=== PATIENT | female | born 1985 | race Caucasian/White ===

== ENCOUNTER → 2018-01-20 08:29 | Outpatient (CLI) | payer OTHER, SELFPAY ==
--- NOTE | 2018-01-20 | DI.US.S_ITS ---
PROCEDURE: US PELVIC COMPLETE INDICATIONS: PELVIC PAIN TECHNIQUE: Real-time scanning was performed of the pelvic organs, with image documentation. Additional endovaginal scanning was necessary due to incomplete visualization of the adnexal and endometrial structures by transabdominal scanning. COMPARISON: None. FINDINGS: Transabdominal scanning: Limited scanning through the kidneys shows no hydronephrosis. No pathologic free abdominal or pelvic fluid. Endovaginal scanning: Uterus: Uterus is normal in size at 3.6 x 5.5 x 8.4 cm, anteverted. The endometrium measures 2.0 mm in combined thickness, with centrally positioned IUD. Ovaries: Normal bilaterally measuring up to 2.0 cm on the right and 2.1 cm on the left. IMPRESSION: Centrally positioned IUD, normal-appearing myometrium and endometrium, normal-appearing ovaries bilaterally. Dictated by: Trevin Mobley M.D. on 01/20/2018 at 11:56 Approved by: Trevin Mobley M.D. on 01/20/2018 at 11:57
== END ==
PROVIDERS: PCP Family Medicine; Visit Provider Obstetrics & Gynecology
DX: R10.2 Pelvic and perineal pain (principal); Z97.5 Presence of (intrauterine) contraceptive device
CPT/HCPCS: 76830; 76856

== ENCOUNTER → 2018-12-10 13:13 | Outpatient (CLI) | payer OTHER, SELFPAY | PROVIDERS: PCP Family Medicine; Visit Provider Specialist | DX: R30.0 Dysuria (principal) | CPT/HCPCS: 87086 ==

== ENCOUNTER 2019-10-30 16:36 | Emergency (ER) | payer OTHER, SELFPAY ==
--- NOTE | 2019-10-30 17:07 | DI.RAD.S_ITS ---
PROCEDURE: XR FOOT LT MIN 3V INDICATIONS: left foot injury TECHNIQUE: 3 views of the foot were acquired. COMPARISON: None. FINDINGS: Bones: No fractures or dislocations. No suspicious bony lesions. Soft tissues: No tibiotalar joint effusion. Achilles tendon appears normal. IMPRESSION: 1. No fracture or dislocation. Dictated by: Jose Pulliam M.D. on 10/30/2019 at 16:32 Approved by: Jose Pulliam M.D. on 10/30/2019 at 16:33
[2019-10-30 17:09] VITALS: BP 113/68; PULSE 81; RESP 16; TEMP 37.1; O2SAT 99; BMI 23.9
--- NOTE | 2019-10-30 17:40 | ED_ITS ---
HPI - Extremity Injury (Lower) General Chief Complaint: Extremity Injury, Lower Stated Complaint: injured left foot on a water slide Time Seen by Provider: 10/30/19 17:40 Source: patient Mode of arrival: Family Vehicle Limitations: no limitations History of Present Illness HPI Narrative: 34-year-old female here for evaluation of left foot pain. She states she hurt it on a water slide yesterday when she was on vacation. She just arrived back home with pain in her left foot. Has not done anything for the symptoms prior to arrival. Related Data Home Medications Medication Instructions Recorded Confirmed levonorgestrel [Mirena] 52 mg INTRAU #0 02/25/17 Previous Rx's Medication Instructions Recorded nitrofurantoin monohyd/m-cryst 100 mg PO BID #10 cap 10/23/17 [Macrobid] sulfamethoxazole 800 1 tab PO BID #10 tab 12/10/18 mg-trimethoprim 160 mg tablet Allergies Allergy/AdvReac Type Severity Reaction Status Date / Time latex Allergy Mild LOCAL RASH Verified 10/30/19 17:15 Review of Systems Musculoskeletal Comments: Left foot pain Integumentary/Breasts Skin/Breast: Denies lesions and Denies rash Neurologic Neurologic: Denies paresthesias Hematologic/Lymphatic Hematologic/Lymphatic: Denies easy bleeding and Denies easy bruising Patient History Medical History Healthy adult (Acute) Social History Smoking Status: Former smoker Smoking Status: Former smoker alcohol intake frequency: a few times a week Alcohol type: hard liquor Substance Use Type: does not use Exam Initial Vital Signs Initial Vital Signs: Vital Signs Temperature 98.7 F 10/30/19 17:09 Pulse Rate 81 10/30/19 17:09 Respiratory Rate 16 10/30/19 17:09 Blood Pressure 113/68 10/30/19 17:09 Pulse Oximetry 99 10/30/19 17:09 Resp Effort & Inspection: normal respiratory effort Auscultation: clear to auscultation bilaterally Cardio Rate: regular rate Rhythm: regular rhythm Pulses: dorsalis pedis present on the left Skin Lesions: no lesions Rashes: no rashes Neuro General: alert and awake Cognition: normal cognition Speech: speech normal Extrem General: normal to inspection and capillary refill normal Psych Appearance: grossly normal and well kempt Procedures Orthopedic Splinting/Casting Injury #1: Side: left Lower Extremity Injury Location: foot Lower Extremity Immobilizer: post-op shoe Post splinting neuro exam: intact Post splinting vascular exam: intact Placed by: Nursing Course Orders Ordered: ED Orders 10/30/19 17:07 XR foot LT min 3V Stat Vital Signs Vital signs: Vital Signs - 8 hr 10/30/19 17:09 Temperature 98.7 F Pulse Rate 81 Respiratory Rate 16 Blood Pressure 113/68 Pulse Oximetry 99 MDM - Extremity Injury (Lower) Imaging Data Extremity x-ray #1: Radiologist's Impression: [address] [address] XRay Report Signed Patient: Jerica Kelley JMR#: [id number] : 1985Acct:[id number] Age/Sex: 34 / FDate of Service: 10/30/19 Loc: ED Accession Number: [id number] Procedure: XR foot LT min 3V Ordering Provider: Jian Patricia D.O. PROCEDURE: XR FOOT LT MIN 3V INDICATIONS: left foot injury TECHNIQUE: 3 views of the foot were acquired. COMPARISON: None. FINDINGS: Bones: No fractures or dislocations. No suspicious bony lesions. Soft tissues: No tibiotalar joint effusion. Achilles tendon appears normal. IMPRESSION: 1. No fracture or dislocation. Dictated by: Jose Pulliam M.D. on 10/30/2019 at 16:32 Approved by: Jose Pulliam M.D. on 10/30/2019 at 16:33 [facility] Narrative Medical decision making narrative: Patient is neurovascularly intact. No fractures on the x-rays, physical exam is not consistent with the Lis franc injury. She was given a ortho shoe for comfort. We did discuss elevation and ice. Discussed return precautions and follow-up instructions. She expressed understanding and agreement. Discharge Plan Departure Patient Disposition: Home Clinical Impression: Injury of foot, left Qualifiers: Encounter type: initial encounter Qualified Code(s): S99.922A - Unspecified injury of left foot, initial encounter Instructions: How To Perform RICE (Rest, Ice, Compress, Elevate), DI for Foot Pain Activity Restrictions/Additional Instructions: I do recommend you keep your foot is elevated as much as possible. You can also ice your foot. You can walk as tolerated. Use the shoe as needed. Return to the emergency department for any new or worsening symptoms Prescriptions: No Action levonorgestrel [Mirena] 1 EACH intrauterine device 52 mg INTRAU Qty: 0 RF: 0 nitrofurantoin monohyd/m-cryst [Macrobid] 100 MG capsule 100 mg PO BID Qty: 10 RF: 0 sulfamethoxazole-trimethoprim [Bactrim DS] 800-160 mg tablet 1 tab PO BID Qty: 10 RF: 0 Referrals: Jorge Andrade MD [Primary Care Provider] -
== END 2019-10-30 18:02 | disposition home or self-care (01) ==
PROVIDERS: Emergency Provider Emergency Medicine; PCP Family Medicine
DX: S99.922A Unspecified injury of left foot, initial encounter (principal); Y93.19 Activity, other involving water and watercraft
CPT/HCPCS: 73630; 99283

== ENCOUNTER → 2020-03-13 12:35 | Outpatient (CLI) | payer OTHER, SELFPAY | PROVIDERS: PCP Family Medicine; Visit Provider Obstetrics & Gynecology | DX: R30.0 Dysuria (principal) | CPT/HCPCS: 87077; 87086; 87186 ==

== ENCOUNTER → 2020-04-30 15:25 | Outpatient (CLI) | payer OTHER, SELFPAY ==
[2020-05-01 10:08] LABS: COVID19 Sendout Not Detected (Not Detect)
== END ==
PROVIDERS: PCP Family Medicine; Visit Provider Physician Assistant
DX: Z11.59 Encounter for screening for other viral diseases (principal)
CPT/HCPCS: 87635

== ENCOUNTER 2020-05-03 07:48 | Day surgery (SDC) | payer OTHER, SELFPAY ==
[2020-05-01 08:00] VITALS: BMI 23.1
[2020-05-03] VITALS (17 sets, daily range): BP systolic 90–141; BP diastolic 41–79; PULSE 62–90; RESP 10–19; TEMP 36.5–37.3; O2SAT 97–100; BMI 23.4
[2020-05-03] MEDS: LACTATED RINGERS 1,000 ML 42 ML IV (08:25)
[2020-05-03] MEDS: ACETAMINOPHEN 325 MG TABLET 975 MG PO (08:49)
[2020-05-03] MEDS: SCOPOLAMINE 1 PATCH TOP (08:49)
--- NOTE | 2020-05-03 08:50 | PM.PREOP ---
Pre-operative Note COVID-19 COVID-19 status: Negative Result date/Date tested (Pos, Neg/Pending): 04/30/20 Interval Note History & Physical reviewed/Exam performed by Physician: Yes Changes to H&P: No H&P completed within 30 days and has changed as indicated here:: 04/25/20
[2020-05-03] MEDS: CEFAZOLIN 2 GM/100 ML FROZ.PIGGY IV (08:51)
--- NOTE | 2020-05-03 09:18 | SUR.OPER ---
Lithotomy on padded OR bed, head on pillow, arms secured on padded arm boards at <90 degrees abduction. Legs secured in padded yellow fins stirrups.
[2020-05-03] MEDS: BUPIVACAINE 0.25% W/ EPI 30 ML VIAL INJ (09:26)
[2020-05-03] MEDS: ONDANSETRON 4 MG/2 ML INJ IV (10:51)
[2020-05-03] MEDS: fentaNYL 100 MCG/2 ML INJ IV ×2 (10:51→11:44)
[2020-05-03] MEDS: OXYCODONE IR 5 MG TABLET PO ×2 (10:52→11:26)
--- NOTE | 2020-05-03 11:04 | PM.GYNOP.1 ---
Operative Date/Time/Diagnoses Date of procedure: 05/03/20 Time of procedure: 11:04 Pre-op diagnosis: Symptomatic cystocele and rectocele Labial hypertrophy causing dyspareunia Post-op diagnosis: same Procedure & Clinicians Procedure: Procedures Operation Date: 05/03/20 09:00 Actual Procedures Side Surgeon p Anterior/Posterior Repair/ Labiaplasty Nati Roche MD Indications: Symptomatic cystocele and rectocele Labial hypertrophy causing dyspareunia Surgeon: Nati Roche Pesticide Control Inspector: Re Palafox Anesthesia Type: General and Local Operative Notes Findings: Second to third-degree cystocele Second to third-degree rectocele Labia minora with 3 extra cm of length bilaterally Closure Type: primary Specimen(s): none Applied: catheter (Latex-free, to continuous drainage) Estimated blood loss (mL): 50 Blood products transfused: none Procedure in detail: The patient was taken to the operating room where she was placed in the dorsal supine position. After adequate general endotracheal anesthesia was achieved, she was placed in the dorsal lithotomy position, and prepped and draped in the usual sterile fashion. A time-out was performed. Two Allis clamps were placed at the apex of the cystocele. 6 mL of 0.25% Marcaine with epinephrine were injected and an incision was made with a #10 blade between the 2 Allis clamps. Wide Allis clamps were placed on the midline of the cystocele approximately 4. 8 cc of 0.25% Marcaine with epinephrine were injected lateral to the midline submucosally on both sides. The mucosa was undermined using the Metzenbaum scissors and the mucosa incised in the midline moving the wide Allis clamps to the edges of the mucosa. The mucosa was dissected off the underlying fascia using an open moistened Ray-Mc and a #10 blade. The fascia was reapproximated with 0 Vicryl with a series of horizontal mattress sutures. The excess vaginal mucosa was excised. The mucosa was closed using simple interrupted sutures with 2-0 Vicryl including the underlying fascia to close the space. The weighted speculum was removed from the vagina. Allis clamps were placed at the mucocutaneous junction at the introitus. 6 mL of 0.25% Marcaine with epinephrine were injected. An incision was made with a #10 blade between the 2 Allis clamps, and a triangular piece of skin and underlying subcutaneous tissue was removed. Allis clamps were placed in the midline of the rectocele. 10 mL of 0.25% Marcaine with epinephrine were injected submucosally. The mucosa was undermined using the Metzenbaum scissors and the mucosa incised in the midline, moving the wide Allis clamps to the mucosal edges. The underlying fascia was dissected off of th mucosa using an open moistened Ray-Mc and a #10 blade. The fascia was reapproximated using 0 Vicryl with a series of horizontal mattress sutures. The excess vaginal mucosa was excised. The mucosa was closed using a series of simple interrupted sutures with 2-0 Vicryl including the underlying fascia to close the space. On the perineum 0 Vicryl was used to reapproximate the levator muscle. The subcutaneous layer was closed with 2-0 Vicryl. The skin was closed with 3-0 chromic in a subcuticular fashion. Hemostasis was achieved. The labia were grasped with Allis clamps, and pulled straight out. Using a sterile marker, approximately 3 cm of tissue was marked off to be removed on each side. 10 cc of 0.25% Marcaine with epinephrine were injected under the skin. Using the Metzenbaum scissors the excess labia minora were excised. The skin was closed with 4 0 chromic in simple interrupted sutures. Hemostasis was achieved. A Betadine moistened vaginal pack was placed into the vagina. A rectal exam was done and there were no sutures palpable in the rectum. 50 cc of urine was clear in the Cutler bag. Sponge, lap, and instrument counts were correct x-2. The patient tolerated the procedure well, was taken to PACU in stable condition. Complications: none Post-operative Condition: stable Disposition: PACU Plan for aftercare: To acute care after recovery
--- NOTE | 2020-05-03 12:01 | SUR.PHASEI ---
Medicated with po and IV pain medication for c/o 8 pain. Patient states pain level is now 4/10. Tolerating po. Drsg has scant amount of red drainage.
[2020-05-03] MEDS: LACTATED RINGERS 1,000 ML 100 ML IV ×2 (12:35→22:34)
--- NOTE | 2020-05-03 14:28 | PC.NURSE ---
Patient was received post-op from PACU, yoder in place draining clear yellow urine. Vaginal packing noted, with shellie pad in place with scant bloody drainage. Labia appears pink with mild edema, patient has ice pack in place. Patient resting comfortably at this time, laying on her right side. Call light within reach. COntinue to monitor.
[2020-05-03] MEDS: OXYCODONE/ACETAMINOPHEN 5/325 TABLET 1 TAB PO ×2 (15:40→20:15)
[2020-05-03] MEDS: KETOROLAC 30 MG/ML VIAL IV ×2 (16:25→22:23)
[2020-05-03] MEDS: DOCUSATE 250 MG CAPSULE PO ×2 (16:26→20:15)
[2020-05-03] MEDS: HYDROMORPHONE 0.5 MG INJ IV ×2 (18:11→22:33)
--- NOTE | 2020-05-03 22:43 | PC.NURSE ---
Assumed care of pt @ 1900. Pt positions self in bed and stands up @ bedside periodically. Reports vaginal bleeding approximately one tablespoon and manages own pad changes. Cutler to gravity. Pt reports stitches in place to labia. Medicated for c/o pain multiple sources as per emar; back and abdomen. Ice pack to perineum. Denies nausea. BL calf scd's in place when in bed.
[2020-05-04] MEDS: OXYCODONE/ACETAMINOPHEN 5/325 TABLET 1 TAB PO ×3 (00:22→09:40)
--- NOTE | 2020-05-04 01:35 | PC.NURSE ---
Addendum entered by Evelyne Ayala R.N. 05/04/20 06:09: Catheter removed at 0600. UOP total of 1575cc. Instructed in sx/prevention of UTI. Patient already stating she is going to need the IV Dilaudid at 0630; rates current pain severity as 3/10. Discussed need to manage pain on po pain medications in order to discharge home and to wait to discuss further with MD when she comes in to remove packing. Peripad changed; small amount vaginal bleeding noted. Addendum entered by Evelyne Ayala R.N. 05/04/20 04:39: Patient complains of 3/10 pain again this morning and insisted on taking Percocet in addition to scheduled Toradol. Addendum entered by Evelyne Ayala R.N. 05/04/20 02:39: States pain is increasing and now at 4/10; medicated with IV Dilaudid Original Note: Seen and assessed at 2325. Is alert and oriented. Breath sounds CTA with RA sat of 100%. HRR. Denies nausea. BT hypoactive; denies passing flatus as yet. Indwelling catheter is patent; urine is clear yellow. Having 2/10 throbbing/aching pain in vaginal wall and rectum; has ice packs to areas and is receiving scheduled Toradol and as needed Percocet. Was medicated with Percocet at 0022 at which time patient stood up at bedside and peripad changed; small amount vaginal bleeding on pad. Labia is slightly swollen but no redness. Is able to moved self in bed. Refusing SCD's so reminded to ankle wave; demonstrated understanding. Fall risk score is moderate.
[2020-05-04] MEDS: HYDROMORPHONE 0.5 MG INJ IV ×2 (02:33→07:38)
[2020-05-04] MEDS: KETOROLAC 30 MG/ML VIAL IV ×2 (04:34→09:40)
[2020-05-04 05:10] VITALS: BP 106/73; PULSE 63; RESP 18; TEMP 36.5; O2SAT 100
[2020-05-04 08:00] VITALS: BP 104/65; PULSE 53; RESP 18; TEMP 36.9; O2SAT 100
[2020-05-04] MEDS: DOCUSATE 250 MG CAPSULE PO (09:40)
--- NOTE | 2020-05-04 12:02 | PC.NURSE ---
Assess- Patient discharged to home. Patient given dilaudid 0.5mg around 0800, she also had toradol and 1 percocet around 0945 for complaints of discomfort to her rectum. into discharge patient and she just left via wheelchair and to drive her home. Patient had only a small amount of bleeding to her peripad and mild swelling to her labia.
--- NOTE | 2020-05-04 13:36 | P.DS_ITS ---
History of Present Illness History of Present Illness Date Patient Seen: 05/04/20 Time Patient Seen: 10:15 Chief complaint: A/P REPAIR W/LABIAPLASTY *OPB* Narrative: Patient is a 34-year-old 2 para 2 postop day # 1 status post anterior and posterior repair as well as bilateral labia plasty. Pain is well controlled. She has voided without the catheter. The vaginal packing was removed and was mostly dry. She has ambulated. Discharge Providers Provider Discharge Date: 05/04/20 Primary care physician: Jorge Andrade MD Discharge provider: Nati Roche MD Summary Hospital Course Discharge Diagnosis: Symptomatic cystocele and rectocele Labial hypertrophy Status post anterior/posterior repair Status post bilateral labia minora labia plasty Hospital Course: Patient was admitted on May 03, 2020 for scheduled anterior and posterior repair as well as labia plasty. She underwent these procedures without complication. On postop day # 1 her catheter was removed and she was able to void 500 cc of clear yellow urine with a 22 cc postvoid residual. She is tolerating a diet. Pain is well controlled. She is ambulating without assistance. She is discharged home. Status at Discharge Cognitive/behavioral status at discharge: oriented Functional status at discharge: independent ambulation Overall status at discharge: patient is progressing back to baseline Time Spent with Patient Time spent: Less than 30 minutes Exam Vital Signs (past 8 hours): - 05/04/20 08:00 Temperature 98.4 F Pulse Rate 53 L Respiratory Rate 18 Blood Pressure 104/65 Pulse Oximetry 100 Oxygen Delivery Method Room Air Oxygen Flow Rate 0 Narrative Exam Narrative: Generally: Patient is sitting up in bed, no acute distress Lungs: Clear to auscultation bilaterally Cardiovascular: Regular rate and rhythm Abdomen: Soft and flat. Good bowel sounds Perineum: Dry, stitches visible Vagina: Packing removed Extremities: Negative Homans Discharge Assessment & Plan Assessment and Plan Assessment: Postop day # 1 status post anterior and posterior repair as well as bilateral labia plasty Patient doing very well Plan of Treatment: Discharge to home Follow-up 2 weeks Prescription for Colace and Percocet sent to [place] [facility] No heavy lifting Patient to call with fever, chills, or bleeding vaginally more than spotting to light Discharge Plan Discharge Plan Patient Disposition: Home Discharge comment: Call with fever, chills or bleeding vaginally more than spotty to light Expect some bleeding Ibuprofen 600mg every 6 hours Stool softners twice a day Discharge Med Rec/Prescriptions Prescriptions: New oxycodone-acetaminophen [Percocet] 5-325 mg tablet 1 tab PO Q4-6H PRN (Reason: pain) Qty: 30 RF: 0 docusate sodium [Colace] 100 mg capsule 100 mg PO BID Qty: 20 RF: 0 Continued Mirena 1 EACH intrauterine device 52 mg INTRAU CONT Qty: 0 RF: 0 Follow up/Referrals: Nati Roche MD [Physician] - 2 Weeks Jorge Andrade MD [Primary Care Provider] - Discharge Orders: Discharge (Order); Ordered 05/04/20 Ordered By: Nati Roche Provider Discharge Instructions Activity: No heavy lifting, pushing or pulling No lunging Skin/Wound/Dressing Care Report to your healthcare provider any signs of infection, such as:: chills, fever, increased pain and unusual drainage Visit Report/Discharge Packet Instructions: DI for Cystocele and Rectocele Repair, DI for Labiaplasty, Oxycodone/Acetaminophen (By mouth) Stand Alone Forms: Surgery Discharge Discharge Data Primary Care Provider: Jorge Andrade Attending Provider: Nati Roche Discharges patient from system. Discharge Date/Time: 05/04/20 12:05
--- NOTE | 2020-05-04 14:18 | CM.DPNOTE ---
DC Note Patient is a 34 yo female, resident of [place]. Patient is POD#1 from [employer] procedure w/Dr Roche. PCP: Jorge Andrade Payer: Pal Le Reviewed chart. MARLENY Reyes explains patient doing well and ambulating in room. Patient eager to leave and will have supportive family to assist upon DC. No needs from this FIN[employer]CIAL [employer] identified at this time. PARMINDER
== END 2020-05-04 12:05 | disposition home or self-care (01) ==
LOC: OR 07:50 → AC 07:50
PROVIDERS: PCP Family Medicine; Referring Provider Family Medicine; Visit Provider Obstetrics & Gynecology
PROC: (CPT 57260; principal; 2020-05-03 09:00)
DX: N81.6 Rectocele (principal); N81.10 Cystocele, unspecified; N90.60 Unspecified hypertrophy of vulva
CPT/HCPCS: 57260; 15839; J0690; J1100; J1170; J1885; J2250; J2405; J2704; J3010

== ENCOUNTER → 2020-11-08 11:32 | Outpatient (CLI) | payer OTHER, SELFPAY ==
[2020-05-22 15:13] VITALS: BMI 23.4
[2020-11-08 11:55] LABS: Add Manual Diff / Slide Review NO; Basophils Absolute Auto 0 /uL (0-100); Basophils Percent Auto 0.1 % (0-2); Eosinophils Absolute Auto 200 /uL (0-450); Eosinophils Percent Auto 1.5 % (2-4); Hematocrit 36.4 % (36-46); Hemoglobin 12.5 g/dL (12.0-16.0); Lymphocytes Absolute Auto 1600 /uL (1100-4500); Lymphocytes Percent Auto 12.7 % (25-40); Mean Corpuscular HGB Conc 34.4 % (30-36); Mean Corpuscular Hemoglobin 32.5 PG (26-34); Mean Corpuscular Volume 94.4 fL (80-100); Monocytes Absolute Auto 700 /uL (0-900); Monocytes Percent Auto 5.5 % (3-14); Neutrophils Absolute Auto 10300 /uL (1500-7000); Neutrophils Percent Auto 80.2 % (50-75); Platelet Count 251 X10^3/uL (150-400); Red Blood Cell Count 3.86 X10^6/uL (4.0-5.2); Red Cell Distribution Width 12.2 % (11.6-14.8); White Blood Cell Count 12.8 X10^3/uL (4.5-11.0)
[2020-11-08 12:14] LABS: Alanine Aminotransferase 13 IU/L (<35); Albumin 4.5 g/dL (3.5-5.0); Albumin Globulin Ratio 1.7 (1.0-2.8); Alkaline Phosphatase 54 U/L (38-126); Aspartate Aminotransferase 18 IU/L (14-36); BUN Creatinine Ratio 16.4 (6-22); Bilirubin Total 0.4 mg/dL (0.2-1.3); Blood Urea Nitrogen 10 mg/dL (7-17); Calcium 9.5 mg/dL (8.4-10.2); Carbon Dioxide 27 mmol/L (22-32); Chloride 102 mmol/L (98-107); Estimated Glomerular Filt Rate > 60.0 mL/min (>60); Globulin 2.7 g/dL (1.7-4.1); Glucose 80 mg/dL (70-100); HEMOLYSIS < 15 (0-50); Potassium 3.7 mmol/L (3.4-5.1); Sodium 138 mmol/L (137-145); Total Protein 7.2 g/dL (6.3-8.2)
[2020-11-08 12:36] LABS: Appearance Urine UA CLOUDY; Bilirubin Urine UA NEGATIVE (NEGATIVE); Color Urine UA YELLOW; Glucose Urine UA NEGATIVE (Negative); Ketones Urine UA TRACE (NEGATIVE); Leukocyte Esterase Urine UA 2+ (NEGATIVE); Nitrite Urine UA POSITIVE (Negative); Occult Blood Urine UA 3+ (Negative); Protein Urine UA 1+ (Negative); Specific Gravity Urine UA 1.025 (1.000-1.035); Urobilinogen Urine UA 0.2 E.U./dL (0.2)
[2020-11-08 12:40] LABS: pH Urine UA 5.5 (4.5-8.0)
[2020-11-08 12:47] LABS: Amorphous Sediment Urine 1+; Bacteria Urine Many (>30); Culture Indicated Urine Specimen Cultured; Mucus Urine 1+ (Negative); RBC Urine 1-5/HPF (0-5/HPF); Squamous Epithelial Cell Urine 0-1 /HPF (0-5/HPF); WBC Urine >100/HPF (0-5/HPF)
[2020-11-08 13:37] LABS: TSH w/ Reflex to FT4 0.15 uIU/mL (0.47-4.68)
[2020-11-08 14:25] LABS: Free T4, Direct Thyroxine 0.99 ng/dL (0.78-2.19)
== END ==
PROVIDERS: PCP Family Medicine; Referring Provider Family Medicine; Visit Provider Obstetrics & Gynecology
DX: N39.0 Urinary tract infection, site not specified (principal); Z13.220 Encounter for screening for lipoid disorders
CPT/HCPCS: 36415; 80053; 81001; 84439; 84443; 85025; 87077; 87086; 87186

== ENCOUNTER → 2021-06-22 12:15 | Outpatient (CLI) | payer OTHER, SELFPAY ==
[2020-05-22 15:13] VITALS: BMI 23.4
[2021-06-22 12:51] LABS: Appearance Urine UA CLOUDY; Bilirubin Urine UA NEGATIVE (NEGATIVE); Color Urine UA YELLOW; Glucose Urine UA NEGATIVE (Negative); Ketones Urine UA TRACE (NEGATIVE); Leukocyte Esterase Urine UA 2+ (NEGATIVE); Nitrite Urine UA NEGATIVE (Negative); Occult Blood Urine UA 1+ (Negative); Protein Urine UA 1+ (Negative); Specific Gravity Urine UA 1.025 (1.000-1.035); Urobilinogen Urine UA 0.2 E.U./dL (0.2)
[2021-06-22 12:52] LABS: pH Urine UA 6.5 (4.5-8.0)
[2021-06-22 12:59] LABS: Amorphous Sediment Urine 1+; Bacteria Urine Moderate (10-30); Mucus Urine 2+ (Negative); RBC Urine 1-5/HPF (0-5/HPF); Squamous Epithelial Cell Urine 0-1 /HPF (0-5/HPF); WBC Urine 5-10/HPF (0-5/HPF)
[2021-06-22 13:00] LABS: Culture Indicated Urine Specimen Cultured
== END ==
PROVIDERS: PCP Family Medicine; Referring Provider Obstetrics & Gynecology; Visit Provider Obstetrics & Gynecology
DX: R30.0 Dysuria (principal)
CPT/HCPCS: 81001; 87086

== ENCOUNTER → 2021-12-31 14:52 | Outpatient (CLI) | payer OTHER, SELFPAY ==
[2020-05-22 15:13] VITALS: BMI 23.4
[2021-12-31 16:59] LABS: Appearance Urine UA CLEAR; Bilirubin Urine UA NEGATIVE (NEGATIVE); Color Urine UA YELLOW; Glucose Urine UA NEGATIVE (Negative); Ketones Urine UA NEGATIVE (NEGATIVE); Leukocyte Esterase Urine UA 2+ (NEGATIVE); Nitrite Urine UA NEGATIVE (Negative); Occult Blood Urine UA TRACE-INTACT (Negative); Protein Urine UA NEGATIVE (Negative); Specific Gravity Urine UA <=1.005 (1.000-1.035); Urobilinogen Urine UA 0.2 E.U./dL (0.2)
[2021-12-31 17:00] LABS: pH Urine UA 6.5 (4.5-8.0)
[2021-12-31 17:12] LABS: Bacteria Urine Moderate (10-30); Culture Indicated Urine Specimen Cultured; RBC Urine 1-5/HPF (0-5/HPF); Squamous Epithelial Cell Urine 0-1 /HPF (0-5/HPF); Transitional Epi Cells Urine 0-1/HPF (0-5/HPF); WBC Urine 10-30/HPF (0-5/HPF)
== END ==
PROVIDERS: PCP Family Medicine; Referring Provider Obstetrics & Gynecology; Visit Provider Obstetrics & Gynecology
DX: R30.0 Dysuria (principal)
CPT/HCPCS: 81003; 81015; 87086

== ENCOUNTER 2024-04-18 03:43 | Emergency (ER) | payer OTHER, SELFPAY ==
[2020-05-22 15:13] VITALS: BMI 23.4
[2024-04-18 03:53] VITALS: BP 118/83; PULSE 83; RESP 18; O2SAT 100
[2024-04-18 03:57] VITALS: BP 118/83; PULSE 91; RESP 18; TEMP 36.5; O2SAT 100; BMI 18.1
--- NOTE | 2024-04-18 04:11 | ED_ITS ---
HPI - Abdominal Pain General Chief Complaint: Abdominal Pain Stated Complaint: abd pain Time Seen by Provider: 04/18/24 03:57 Source: patient Mode of arrival: Ambulatory History of Present Illness HPI narrative: Patient is 38-year-old female who presents she was epigastric pain. She reports that it is quite tender has no nausea vomiting or fever. It progressively has gotten worse throughout the day. It is nonradiating. She reports that she is lost about 15 lb over the last month or so. She previously was having night sweats but no longer. She reports that many women in her family have ulcer she is afraid that she has 1 2. She says that her pain is definitely worsened with gluten and dairy so she avoids those things. She is good about eating getting enough protein. No significant right upper quadrant pain no right shoulder pain. She has had it off and on but no has progressively got worse. She gets relief sitting up leaning forward Related Data Home Medications Medication Instructions Recorded Confirmed levonorgestrel 21 mcg/24 hours (8 52 mg INTRAU CONT ##0 02/25/17 11/26/20 yrs) 52 mg intrauterine device (Mirena) Previous Rx's Medication Instructions Recorded escitalopram oxalate 10 mg tablet See Rx Instructions .Route 03/10/22 .COMPLEX #30 tabs omeprazole 20 mg capsule,delayed 20 mg PO BID #30 caps 04/18/24 release Allergies Allergy/AdvReac Type Severity Reaction Status Date / Time latex Allergy Mild LOCAL RASH Verified 11/26/20 08:03 Patient History Medical History (Updated 04/18/24 @ 06:20 by Jessica Goodson DO) Healthy adult Social History marital status: household members: spouse and children Smoking Status: Former smoker alcohol intake: current Smoking Status: Former smoker alcohol intake frequency: a few times a week Alcohol type: hard liquor Substance Use Type: does not use Exam Initial Vital Signs Initial Vital Signs: Vital Signs Pulse Rate 83 04/18/24 03:53 Respiratory Rate 18 04/18/24 03:53 Blood Pressure 118/83 04/18/24 03:53 Pulse Oximetry 100 04/18/24 03:53 GENERAL: Thin alert 38-year-old female appears uncomfortable HEENT: Head atraumatic,EOMI, pupils reactive, face symmetric, moist mucous membranes CARDIOVASCULAR: Regular rate and rhythm without murmurs, rubs or gallops. RESPIRATORY: Breath sounds equal bilaterally, no wheezes rales or rhonchi. ABDOMEN: Soft, epigastric pain negative Brown's sign no right upper quadrant pain no distention no lower abdominal pain : No CVA tenderness EXTREMITIES: Normal range of motion, no clubbing or edema. Neurovascularly intact NEUROLOGICAL: Alert and oriented x4.Normal gait and speech. SKIN: Warm, dry, no laceration, no petechiae, no rashes or lesions. Course Orders Ordered: Discontinued Medications Acetaminophen (Ofirmev) 1,000 mg in 100 mls @ 400 mls/hr IV NOW ONE Stop: 04/18/24 06:25 Last Infusion: 04/18/24 06:49 Dose: Infused Documented By: Admin: 04/18/24 06:19 Dose: 400 mls/hr Documented By: SADIE Ketorolac Tromethamine (Ketorolac 30 Mg/Ml Vial) 15 mg IV NOW ONE Stop: 04/18/24 04:17 Last Admin: 04/18/24 04:22 Dose: 15 mg Documented By: Ondansetron HCl (Ondansetron 4 Mg/2 Ml Inj) 4 mg IV NOW ONE Stop: 04/18/24 04:52 Last Admin: 04/18/24 04:59 Dose: Not Given Documented By: SADIE Pantoprazole Sodium (Pantoprazole 40 Mg Vial) 40 mg IV NOW ONE Stop: 04/18/24 06:12 Last Admin: 04/18/24 06:16 Dose: 40 mg Documented By: SADIE Vital Signs Vital signs: Vital Signs - 8 hr 04/18/24 03:53 04/18/24 03:53 04/18/24 03:57 Temperature 97.7 F Pulse Rate 83 91 H Respiratory Rate 18 18 Blood Pressure 118/83 118/83 Pulse Oximetry 100 100 Oxygen Delivery Method Room Air MDM - Abdominal Pain Lab Data 04/18/24 04:08 04/18/24 04:08 Labs: Lab Results 04/18/24 Range/Units 04:08 WBC 5.6 (4.5-11.0) X10^3/uL RBC 3.87 L (4.0-5.2) X10^6/uL Hgb 12.7 (12.0-16.0) g/dL Hct 35.8 L (36-46) % MCV 92.6 (80-100) fL MCH 32.8 (26-34) PG MCHC 35.4 (30-36) % RDW 13.1 (11.6-14.8) % Plt Count 268 (150-400) X10^3/uL Neut % (Auto) 44.2 L (50-75) % Lymph % (Auto) 43.1 H (25-40) % [place] % (Auto) 8.1 (3-14) % Eos % (Auto) 4.0 (2-4) % Baso % (Auto) 0.6 (0-2) % Neut # (Auto) 2500 (2726-8281) /uL Lymph # (Auto) 2400 (3102-5234) /uL [place] # (Auto) 500 (0-900) /uL Eos # (Auto) 200 (0-450) /uL Baso # (Auto) 0 (0-100) /uL Sodium 135 L (137-145) mmol/L Potassium 3.5 (3.4-5.1) mmol/L Chloride 106 (98-107) mmol/L Carbon Dioxide 22 (22-32) mmol/L BUN 13 (7-17) mg/dL Creatinine 0.58 (0.52-1.04) mg/dL Estimated GFR > 60 (>60) mL/min BUN/Creatinine Ratio 22.4 H (6-22) Glucose 93 (70-100) mg/dL Calcium 9.3 (8.4-10.2) mg/dL Total Bilirubin 0.6 (0.2-1.3) mg/dL AST 27 (14-36) IU/L ALT 24 (<35) IU/L Alkaline Phosphatase 67 (38-126) U/L Total Protein 7.4 (6.3-8.2) g/dL Albumin 4.4 (3.5-5.0) g/dL Globulin 3.0 (1.7-4.1) g/dL Albumin/Globulin Ratio 1.5 (1.0-2.8) Lipase 108 (23-300) U/L Point of care testing: Point of Care Testing Test Results Negative Urine Dip Bedside Urine Glucose Negative Bedside Urine Bilirubin - Negative Bedside Urine Ketone - Negative Urine Specific [place] 1.025 Bedside Urine Occult Blood - Negative Bedside Urine pH 6 Bedside Urine Protein - Negative Bedside Urine Urobilinogen - Negative Bedside Urine Nitrite - Negative Bedside Urine Leukocytes - Negative Esterase Imaging Data CT scan - abdomen/pelvis: Radiologist's Impression: Preliminary report prominent periuterine and left gonadal veins. Query pelvic congestion syndrome. Small pelvic ascites maybe physiologic nature. Borderline thickening 3 mm of greater curvature of stomach a little gastric antrum was nonspecific and maybe insulin dental or due to gastritis. Clinical correlation recommended MDM Narrative Medical decision making narrative: Patient is a healthy 38-year-old female who presents today with ongoing abdominal pain. She has had some unintentional weight loss despite eating appropriately she says. Family history of ulcers. He is tender epigastric region Blood Work has been reviewed make or having leukocytosis. WBC 5.6 hemoglobin 12.7 hematocrit 35.8 platelets 268 Sodium 135 potassium 3.5 chloride 106 carbon dioxide 22 BUN 13 creatinine 0.58, total bilirubin 0.6 AST 27 ALT [address] has been reviewed she has some thickening has a curvature of her stomach in questionable pelvic congestion syndrome Patient has significant epigastric pain history of ulcers in her family food makes her pain worse with some thickening of the gastric wall. Suspect an ulcer. She has not actively bleeding. She was given Toradol did not help. She is now given Tylenol and Protonix. Discussed with her she needs a non emergent EGD for further diagnosis but recommended treatment with omeprazole. Discharge Plan Departure Patient Disposition: Home Clinical Impression: Gastric ulcer Instructions: DI for Gastric Ulcer Activity Restrictions/Additional Instructions: *You have been diagnosed with gastric ulcer *What to do: At this time I do recommend that you have any EGD scheduled with GI or surgery. It is nonemergent at this time. I would avoid NSAIDs such as ibuprofen, Motrin, Aleve, naproxen *Continue to take medications as directed Omeprazole 20 mg twice a day for 14 days then once daily Tylenol 1000 mg every 6 hours if needed for [id number] pain *Follow up with your primary care provider in 2-3 days or call [phone] *Return to ER if you should have increasing pain bloody stools vomiting or any new, worsening or concerning symptoms Prescriptions: New omeprazole 20 mg capsule,delayed release(DR/EC) 20 mg PO BID Qty: 30 0RF No Action Mirena 1 EACH intrauterine device 52 mg INTRAU CONT Qty: 0 escitalopram oxalate 10 mg tablet See Rx Instructions .ROUTE .COMPLEX Qty: 30 5RF Dose Instruction: take 1 tablet by mouth once daily. Must be seen before more fills, thanks 02/10/22 Rx Instructions: take 1 tablet by mouth once daily. Must be seen before more fills, thanks 02/10/22 Referrals: [facility] [Provider Group] Jorge Andrade MD [Primary Care Provider] - Stand Alone Forms: Patient Portal/API
--- NOTE | 2024-04-18 04:16 | DI.CT.S_ITS ---
PROCEDURE: CT ABDOMEN PELVIS W CON INDICATIONS: Weight loss night sweats abdominal TECHNIQUE: After the administration of intravenous contrast, axial sections acquired from the lung bases to the pubic symphysis. Coronal and sagittal reformats were performed. For radiation dose reduction, the following was used: automated exposure control, adjustment of mA and/or kV according to patient size. COMPARISON: None. FINDINGS: Image quality: Diagnostic. Lower Chest: Bilateral mammoplasties. ABDOMEN: Liver: No solid mass. Gallbladder: No radiopaque gallstones or wall thickening. Biliary ducts: No biliary dilation. Pancreas: No ductal dilation. Spleen: Size is within normal limits. Adrenal Glands: No adrenal nodules. Kidneys and Ureters: No hydronephrosis. No solid mass. No complex renal cystic lesion which requires follow up. Stomach and Bowel: Mild prominence of the wall of the greater curvature of the stomach, most likely secondary to lack of distention. Normal colonic caliber, without significant wall thickening. Peritoneum: No abnormal intraperitoneal fluid. Physiologic fluid in the pelvis. No free air. Ventral Wall: No significant ventral hernia. Abdominal Nodes: No retroperitoneal or mesenteric adenopathy by size criteria. Vessels: Aorta and inferior vena cava are normal in size. Dilated refluxing left gonadal vein giving rise to paraovarian varicosities. PELVIS: Pelvic Organs: Unremarkable. Bladder: No bladder wall thickening, accounting for underdistention. Pelvic Nodes: No enlarged lymph nodes. Miscellaneous: No inguinal hernias are seen. Bones: No aggressive osseous abnormality. IMPRESSION: 1. No acute abdominal process suspected. 2. 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 In certain individuals, this can correlate with a clinical syndrome of chronic pelvic venous congestion. 3. Mild prominence of the wall of the greater curvature of the stomach is likely secondary to submaximal distention. Comment: Final report is concordant with preliminary interpretation provided by [facility]. Dictated by: Haja Otto M.D. on 04/18/2024 at 7:58 Approved by: Haja Otto M.D. on 04/18/2024 at 8:04
[2024-04-18 04:17] LABS: Add Manual Diff / Slide Review NO; Basophils Absolute Auto 0 /uL (0-100); Basophils Percent Auto 0.6 % (0-2); Eosinophils Absolute Auto 200 /uL (0-450); Hematocrit 35.8 % (36-46); Hemoglobin 12.7 g/dL (12.0-16.0); Lymphocytes Absolute Auto 2400 /uL (1100-4500); Lymphocytes Percent Auto 43.1 % (25-40); Mean Corpuscular HGB Conc 35.4 % (30-36); Mean Corpuscular Hemoglobin 32.8 PG (26-34); Mean Corpuscular Volume 92.6 fL (80-100); Monocytes Absolute Auto 500 /uL (0-900); Monocytes Percent Auto 8.1 % (3-14); Neutrophils Absolute Auto 2500 /uL (1500-7000); Neutrophils Percent Auto 44.2 % (50-75); Platelet Count 268 X10^3/uL (150-400); Red Blood Cell Count 3.87 X10^6/uL (4.0-5.2); Red Cell Distribution Width 13.1 % (11.6-14.8); White Blood Cell Count 5.6 X10^3/uL (4.5-11.0)
[2024-04-18] MEDS: KETOROLAC 30 MG/ML VIAL 15 MG IV (04:22)
[2024-04-18 04:28] LABS: Alanine Aminotransferase 24 IU/L (<35); Albumin 4.4 g/dL (3.5-5.0); Albumin Globulin Ratio 1.5 (1.0-2.8); Alkaline Phosphatase 67 U/L (38-126); Aspartate Aminotransferase 27 IU/L (14-36); BUN Creatinine Ratio 22.4 (6-22); Bilirubin Total 0.6 mg/dL (0.2-1.3); Blood Urea Nitrogen 13 mg/dL (7-17); Calcium 9.3 mg/dL (8.4-10.2); Carbon Dioxide 22 mmol/L (22-32); Chloride 106 mmol/L (98-107); Estimated Glomerular Filt Rate > 60 mL/min (>60); Glucose 93 mg/dL (70-100); HEMOLYSIS < 15 (0-50); Lipase 108 U/L (23-300); Potassium 3.5 mmol/L (3.4-5.1); Sodium 135 mmol/L (137-145); Total Protein 7.4 g/dL (6.3-8.2)
[2024-04-18] MEDS: PANTOPRAZOLE 40 MG VIAL IV (06:16)
[2024-04-18] MEDS: ACETAMINOPHEN IV 1,000 MG/100 ML VIAL 400 MG IV (06:19)
[2024-04-18 06:49] VITALS: BP 100/58; PULSE 54; RESP 17; O2SAT 98
== END 2024-04-18 06:51 | disposition home or self-care (01) ==
PROVIDERS: Emergency Provider Emergency Medicine; PCP Family Medicine
DX: K25.9 Gastric ulcer, unspecified as acute or chronic, without hemorrhage or perforation (principal)
CPT/HCPCS: 74177; 80053; 81003; 81025; 83690; 85025; 96365; 96375; 99283; 99284; J0136; J1885; J2405; J2470; Q9967

== ENCOUNTER 2024-05-05 07:32 | Day surgery (SDC) | payer OTHER, SELFPAY ==
[2020-05-22 15:13] VITALS: BMI 23.4
[2024-05-05] VITALS (7 sets, daily range): BP systolic 92–104; BP diastolic 58–79; PULSE 61–81; RESP 12–20; TEMP 36.4–36.6; O2SAT 97–100
--- NOTE | 2024-05-05 | PATH_ITS ---
[facility] Accession Number: [id number] No. of containers..02 Tissue . 01 Material submitted: . PART A: duodenum - DUODENUM PART B: gastrointestinal site - ANTRUM . 01 Diagnosis: A. DUODENUM, BIOPSY: Duodenal mucosa with no diagnostic abnormality. Negative for active inflammation, features of sprue, dysplasia, or malignancy. . B. GASTRIC ANTRUM, BIOPSY: Gastric antral mucosa with mild chronic gastritis. No evidence of Helicobacter organisms on H/E stain. Negative for intestinal metaplasia. Negative for dysplasia or malignancy. V 05/09/2024 1115 Local . 01 Electronically signed: . Jonh Daniels MD, PhD, Pathologist NPI- [id number] . 01 Gross description: . A. Received in formalin with two patient identifiers and duodenum, are five lopez soft tissue fragments, 0.2 to 0.3 cm in greatest dimension. Submitted in A1. B. Received in formalin with two patient identifiers and antrum, are three lopez soft tissue fragments, 0.4 to 0.5 cm in greatest dimension. Submitted in B1. ([id number]) /V 05/06/2024 1801 Local . 01 Pathologist provided ICD-10: R93.3, R10.13 . 01 CPT . 096839, 831542 Specimen Comment: A courtesy copy of this report has been sent to [phone] Performed at: [address] [id number] MD Jose Castro MD Phone: [phone]
[2024-05-05] MEDS: LACTATED RINGERS 1,000 ML 42 ML IV (07:57)
--- NOTE | 2024-05-05 08:11 | PM.HP.1 ---
History of Present Illness History of Present Illness Date Patient Seen: 05/05/24 Time Patient Seen: 08:11 Chief complaint: EGD w/poss bx Narrative: Jerica is a 38-year-old woman who had a recent CT scan which were reported thickening of the stomach wall. See the prior office note details. [facility] Medical History (Updated 05/05/24 @ 08:12 by Mary Fernandes RN) Abdominal trauma Healthy adult Surgical History (Updated 05/05/24 @ 08:06 by Mary Fernandes RN) History of colonoscopy Social History marital status: household members: spouse and children Smoking Status: Former smoker alcohol intake: never Meds Home Medications and Allergies Home Medications Medication Instructions Recorded Confirmed Type escitalopram oxalate 10 mg tablet See Rx Instructions .Route 03/10/22 05/05/24 Rx .COMPLEX #30 tabs Allergies Allergy/AdvReac Type Severity Reaction Status Date / Time latex Allergy Mild LOCAL RASH Verified 05/05/24 07:43 Exam Vital Signs (past 8 hours): - 05/05/24 07:44 Temperature 97.9 F Pulse Rate 80 Respiratory Rate 18 Blood Pressure 104/79 Pulse Oximetry 100 Oxygen Delivery Method Room Air Oxygen Delivery Method Room Air Const General: healthy appearing Assessment & Plan Assessment and plan (1) Abnormal finding on GI tract imaging: Status: Acute Plan We reviewed the risks and benefits of EGD and she would like to proceed. Time-Based Coding :: [TOTAL MINUTES] spent with patient and on the chart (including review of chart, obtaining history, exam, reviewing outside data, placing orders, documenting exam and treatment plan, and counseling patient) on [DATE].
--- NOTE | 2024-05-05 08:37 | PM.OP.EGD ---
Operative Date/Time/Diagnoses Date of procedure: 05/05/24 Time of procedure: 08:37 Pre-op diagnosis: Abnormal imaging of the GI tract Post-op diagnosis: same Procedure & Clinicians Study performed: Esophagogastroduodenoscopy Same procedure as scheduled: Yes Surgeon: Martín Corley Procedure Notes Procedure in detail: Surgeon: Martín Corley MD Anesthesia: Daisy Green CRNA A timeout was performed. A bite blocked was placed. The patient was positioned in the left lateral decubitus position. Anesthesia was administered. The endoscope was inserted through the bite block and passed through the esophagus and stomach and into the duodenum. The duodenal mucosa appeared normal. There were no abnormalities. Random biopsies were taken with cold forceps from the duodenal mucosa. The scope was withdrawn into the stomach. No abnormalities were identified. Random biopsies were taken from the antral mucosa with cold forceps. The rest of the stomach was normal. The scope was retroflexed and no abnormalities were seen. The scope was withdrawn into the esophagus and no abnormalities were seen. The remainder of the esophagus was normal. The scope was withdrawn. The patient was awakened and brought to recovery. Sedation time: 7 minutes Findings: Normal EGD Post-procedure Disposition: PACU
== END 2024-05-05 09:15 | disposition home or self-care (01) ==
PROVIDERS: PCP Family Medicine; Referring Provider Surgery; Visit Provider Surgery
PROC: 0DJ08ZZ Inspection of Upper Intestinal Tract, Via Natural or Artificial Opening Endoscopic (ICD-10-PCS; CPT 43239; principal; 2024-05-05 08:30)
DX: K29.50 Unspecified chronic gastritis without bleeding (principal)
CPT/HCPCS: 43239; 81025; J2405; J2704

== ENCOUNTER 2024-05-30 11:32 | Day surgery (SDC) | payer OTHER, SELFPAY ==
[2024-05-05 15:45] VITALS: BMI 23.4
[2024-05-26 08:39] VITALS: BMI 19.2
[2024-05-30] VITALS (20 sets, daily range): BP systolic 98–123; BP diastolic 52–84; PULSE 54–98; RESP 12–17; TEMP 35.8–36.7; O2SAT 99–100; BMI 18.8
--- NOTE | 2024-05-30 | PATH_ITS ---
[facility] Accession Number: [id number] No. of containers..01 Tissue . 01 Material submitted: . uterus - UTERUS, BILATERAL FALLOPIAN TUBES . 01 Diagnosis: UTERUS AND BILATERAL FALLOPIAN TUBES, HYSTERECTOMY AND BILATERAL SALPINGECTOMY: Proliferative endometrium. Bilateral fimbriated fallopian tubes with benign paratubal cysts. MRV 06/03/2024 1411 Local . 01 Electronically signed: . Yusra Ugarte MD, Pathologist NPI- [id number] . 01 Gross description: . Received in formalin with two patient identifiers and uterus, bilateral fallopian tubes, is a disrupted and distorted uterus (47 grams, 7.5 x 7.3 x 4.9 cm) with attached fallopian tube (6.4 x0.5 cm) and detached fallopian tube (3.2 x 0.6 cm), with no cervix or additional adnexa. The serosa is lopez and smooth with no hemorrhage or adhesion identified. The presumed endometrium is red-lopez, velvety, and averages less than 0.1 cm thick. The myometrium is lopez and trabecular with no nodules or lesions identified. . Both tubes have violaceous, smooth serosa with cystic structures ranging from 0.1 to 0.2 cm in greatest dimension filled with cloudy serous fluid. The lumens are stellate and unremarkable. . State Appellate Clerk sections are submitted as follows: A1: Presumed endometrium. A2: Longer fallopian tube to include one-half of bisected fimbriae and cross sections. A3: [place] fallopian tube to include one-half of bisected fimbriae and cross sections. ([id number]) /MRV 06/01/2024 0410 Local . 01 Pathologist provided ICD-10: R10.9, N94.89 . 01 CPT . 616802 Specimen Comment: A courtesy copy of this report has been sent to [phone] Performed at: [address] [address], [place], [place] [id number] MD Jose Castro MD Phone: [phone]
[2024-05-30] MEDS: LACTATED RINGERS 1,000 ML 42 ML IV (11:47)
[2024-05-30] MEDS: SCOPOLAMINE 1 PATCH TOP (11:49)
--- NOTE | 2024-05-30 12:05 | PM.PREOP ---
Pre-operative Note Interval Note History & Physical reviewed/Exam performed by Physician: Yes Changes to H&P: No H&P completed within 30 days and has changed as indicated here:: 05/23/24
[2024-05-30] MEDS: CEFAZOLIN 2 GM/100 ML PREMIX 100 ML IV (12:42)
--- NOTE | 2024-05-30 13:04 | SUR.OPER ---
Lithotomy on padded OR bed. Effie Pad Positioner under torso. Head on pillow, arms padded and tucked at sides. Legs secured in padded yellow fins stirrups.
[2024-05-30] MEDS: BUPIVACAINE 0.5% W/ EPI (PF) 30 ML VIAL INJ (13:10)
[2024-05-30] MEDS: ROPIVACAINE 0.2% PF 2 MG/ML 10ML AMP 20 ML INJ (13:11)
--- NOTE | 2024-05-30 14:19 | PM.GYNOP.1 ---
Operative Date/Time/Diagnoses Date of procedure: 05/30/24 Time of procedure: 14:19 Pre-op diagnosis: Pelvic pain Pelvic congestion Post-op diagnosis: same Procedure & Clinicians Procedure: Procedures Operation Date: 05/30/24 12:45 Actual Procedure Side Surgeon p Laparoscopic Supracervical Hysterectomy with bilateral salpingectomy, lysis of adhesion Nati Roche MD Indications: 38-year-old 3 para 3 with pelvic pain and pelvic congestion especially in the left adnexa. Surgeon: Nati Rcohe Dance Studio Manager: Harmony Hernandez Anesthesia Type: General and Local Operative Notes Findings: 8 week size anteverted uterus Definite enlarged veins, pelvic congestion in the left adnexa Evidence of old endometriosis Normal appendix Normal liver and gallbladder Omental to anterior abdominal wall adhesions Normal ovaries Normal tubes Closure Type: primary Specimen(s): left tube, right tube and uterus Applied: catheter (Removed at the end of the case) Estimated blood loss (mL): 50 Blood products transfused: none Procedure in detail: The patient was taken to the operating room where she was placed in the dorsal supine position. After adequate general endotracheal anesthesia was achieved, she was placed in the dorsal lithotomy position, and prepped and draped in the usual sterile fashion. A timeout was performed. A bivalve speculum was placed into the vagina and the anterior lip of the cervix grasped with a single-tooth tenaculum. The cervical os was sequentially dilated until the ZUMI uterine manipulator could pass easily into the endometrial cavity. The single-tooth tenaculum was removed from the anterior lip of the cervix, and the bivalve speculum was removed from the vagina. Attention was then turned to the abdomen where 6 mL of half percent Marcaine with epinephrine were injected in the umbilical fold. A 5 mm incision was made. The Veress needle was placed into the peritoneal cavity, and its placement confirmed by aspiration and drop test. The Veress needle was removed. A 5 mm trocar was placed without difficulty. Two other incisions were made 4 cm lateral to the midline after 6 cc of 0.25% Marcaine with epinephrine were injected These were 5 mm incisions. Two 5 mm trocars were placed under direct visualization. Using the power seal, the omental to anterior abdominal wall adhesions were taken down. The right tube was grasped with an atraumatic grasper. Using the power seal, the mesosalpinx was cauterized and cut all the way down to the cornua of the uterus. The cornua of the uterus was then grasped with an atraumatic grasper. The utero-ovarian ligaments were cauterized and cut. The round ligament and broad ligament was cauterized and cut with the power seal. Hemostasis was achieved. The bladder flap was created using the power seal with cautery and cut care home across. The uterine arteries on the right side were extensively cauterized with power seal. All of this was repeated on the left side. The remainder of the bladder flap was created using the power seal, and the bladder taken down off the lower uterine segment and cervix. Using the Chel loop, the cervix was amputated from the uterus 2 cm above the uterosacral ligaments, after the ZUMI uterine manipulator was removed from the uterus. There was a small amount of bleeding noted from the posterior edge of the cervix, and this was cauterized for hemostasis. A sponge stick was placed into the vagina. 6 mL of half percent Marcaine with epinephrine were injected above the pubic symphysis. A 12 mm trocar was placed. A large Endobag was placed through the suprapubic trocar and the uterus and tubes were placed into the Endobag. The trocar was removed. The edges of the bag were brought up through the incision. A Carolyne was placed on the uterus inside the bag. The Sohan was placed into the endobag. The uterus was hand morcellated in 1 piece. The Endobag and Sohan were removed from the peritoneal cavity. The fascia on the suprapubic incision was closed with 0 Vicryl in a running fashion. The abdomen was re-insufflated with carbon dioxide gas. The pelvis was copiously irrigated with warm normal saline. Per clot was placed over the cervical stump. The instruments were removed from the abdomen. The CO2 was allowed to escape. Two simple interrupted sutures were placed in the subcutaneous layer in the suprapubic incision. All of the incisions were closed with 4-0 Biosyn in a subcuticular fashion. The moistened sponge stick was removed from the vagina. Sponge, lap, and instrument counts were correct x-2. The patient tolerated the procedure well, was taken to PACU in stable condition. The urine was clear. The Cutler catheter was removed at the end of the case. Complications: none Post-operative Condition: stable Disposition: PACU Plan for aftercare: To acute care after recovery
[2024-05-30] MEDS: OXYCODONE IR 5 MG TABLET PO ×3 (14:51→23:28)
[2024-05-30] MEDS: ONDANSETRON 4 MG/2 ML INJ IV (14:51)
[2024-05-30] MEDS: fentaNYL 100 MCG/2 ML INJ IV ×4 (14:52→15:23)
[2024-05-30] MEDS: ACETAMINOPHEN 325 MG TABLET 650 MG PO ×3 (14:52→23:27)
[2024-05-30] MEDS: hydrOXYzine 50 MG/ML INJ 25 MG IM (15:27)
[2024-05-30] MEDS: LACTATED RINGERS 1,000 ML 100 ML IV (16:13)
[2024-05-30 16:50] LABS: Estimated Glomerular Filt Rate > 60 mL/min (>60)
[2024-05-30] MEDS: HYDROMORPHONE 0.5 MG INJ IV ×2 (16:59→22:41)
--- NOTE | 2024-05-30 18:17 | PC.NURSE ---
Admit Note Patient arrived to room 222 from PACU at approx 1550. Alert and oriented x3. Allevyn dressings x4 C/D/I to abdomen. Minimal drainage to peripad. Reported pain 02/07, requesting further pain medication. Dr. Roche notified as nothing was available and order obtained and given for Dilaudid 0.5 mg IV, pt reports this was effective. Ice pack in place to abdomen. Tolerating general diet without nausea. SpO2 98-100% on RA. Oriented to room and to call light/bed/tv controls. Call light within reach, using appropriately to make needs known.
[2024-05-30] MEDS: OXYCODONE IR 5 MG TABLET 10 MG PO (18:34)
[2024-05-30] MEDS: KETOROLAC 30 MG/ML VIAL IV (20:18)
[2024-05-30] MEDS: ALPRAZolam 0.25 MG TABLET PO (20:33)
[2024-05-30] MEDS: DOCUSATE 100 MG CAPSULE 200 MG PO (22:44)
--- NOTE | 2024-05-30 23:30 | PC.NURSE ---
NOC: Pt unable to void by [id number]. Bladder scan revealed ~400mL, tenderness and distention in bladder abd area. MARLENY Philip spoke to MD Roche who recommended indwelling Cutler catheter. Cutler placed by MARLENY Philip, pt tolerated catheterization well, drained 300mL clear yellow urine. Cutler continues to drain, clear/yellow and >30mL per hour. MD Roche to remove when appropriate. Care continues.
[2024-05-31] MEDS: KETOROLAC 30 MG/ML VIAL IV ×3 (02:01→13:32)
[2024-05-31] MEDS: LACTATED RINGERS 1,000 ML 100 ML IV (02:16)
[2024-05-31] MEDS: HYDROMORPHONE 0.5 MG INJ IV ×5 (02:22→21:22)
[2024-05-31 05:49] LABS: Add Manual Diff / Slide Review NO; Basophils Absolute Auto 0 /uL (0-100); Basophils Percent Auto 0.2 % (0-2); Eosinophils Absolute Auto 0 /uL (0-450); Eosinophils Percent Auto 0.2 % (2-4); Hematocrit 26.1 % (36-46); Hemoglobin 9.3 g/dL (12.0-16.0); Lymphocytes Absolute Auto 1100 /uL (1100-4500); Lymphocytes Percent Auto 14.2 % (25-40); Mean Corpuscular HGB Conc 35.7 % (30-36); Mean Corpuscular Volume 95.3 fL (80-100); Monocytes Absolute Auto 800 /uL (0-900); Monocytes Percent Auto 10.9 % (3-14); Neutrophils Absolute Auto 5700 /uL (1500-7000); Neutrophils Percent Auto 74.5 % (50-75); Platelet Count 219 X10^3/uL (150-400); Red Blood Cell Count 2.74 X10^6/uL (4.0-5.2); Red Cell Distribution Width 12.5 % (11.6-14.8); White Blood Cell Count 7.6 X10^3/uL (4.5-11.0)
[2024-05-31] MEDS: ACETAMINOPHEN 325 MG TABLET 650 MG PO ×3 (05:58→17:11)
[2024-05-31] MEDS: OXYCODONE IR 5 MG TABLET PO ×2 (08:57→19:06)
[2024-05-31] MEDS: ALPRAZolam 0.25 MG TABLET PO ×2 (08:57→19:59)
[2024-05-31] MEDS: DOCUSATE 100 MG CAPSULE 200 MG PO ×2 (08:57→19:59)
[2024-05-31] MEDS: ONDANSETRON 4 MG/2 ML INJ IV ×2 (08:57→19:07)
--- NOTE | 2024-05-31 11:24 | CM.DANOTE ---
Initial DCP Assessment Note Pt is a 38 yo female, resident of [place], now POD#1 from HOUSE OFFICER procedure with Dr Roche. PCP: Jorge Andrade Payer: Pal Jacinto Reviewed chart, pt discussed in multidisciplinary rounds this morning. Patient expected to be discharged today. Patient lives independently with family and has planned to return home with family to assist throughout recovery. No barriers identified at this time to patient's safe discharge home w/family to assist; close outpatient f/u recommended. CM team will plan to follow clinical course closely in case any DC needs or concerns arise. FELICIA Gar Discharge Planning/Care Management Discharge Assessment Start: 05/31/24 11:23 Freq: Status: Active Protocol: Document 05/31/24 11:23 PARMINDER (Rec: 05/31/24 11:24 PARMINDER [id number]) Discharge Planning Assessment Assigned Cell Assembly Pinner FELICIA Tierney DPOA/Assigned Designee Name Cosme Bianchi, spouse Contact Information [phone] cell Advance Directives? No History Provided By Patient,Medical Record Prior Living Arrangements House Household Members spouse,children Type of transporation used prior to Drives own vehicle admit Independent with ADL's Yes Is patient alert and oriented? Yes Barriers to Discharge No Comment Home w/family to assist throughout recovery Discharge Plan Home Transportation Arrangement Family Referrals Initiated None needed
--- NOTE | 2024-05-31 14:26 | PC.NURSE ---
Addendum entered by Harmony Alvarez R.N. 05/31/24 18:53: patient was able to void on her own, PVR 372cc. She was encouraged to try to pee again, although she did not have the urge at 1730. She is able to void another 500cc at 1800 and PVR was 74cc Original Note: Patient had Cutler dc'd this a.m. at 0930 and per MD orders patient to have IVF dc'd, encourage po fluid and have patient try to void. If after 4 hours she is unable to void, patient to be straight cath'd. Patient is unable to void by 1330 and is straigh cath'd for 300 cc urine (PVR=24), noted labia swollen. lap sites to abdomen c/d/i. BS x4 hypoactive. Patient states she feels tightness in R arm move to shoulder, down to chest. MD notified of straight cath, and will attempt to have patient void over the next 4 hours encouraging fluid and ambulation.
[2024-05-31 17:38] VITALS: BP 99/64; PULSE 66; RESP 17; TEMP 37.1; O2SAT 100
[2024-05-31 20:00] VITALS: BP 102/63; PULSE 74; RESP 22; TEMP 35.8; O2SAT 100
[2024-06-01] MEDS: HYDROMORPHONE 0.5 MG INJ IV (00:25)
[2024-06-01] MEDS: OXYCODONE IR 5 MG TABLET 10 MG PO ×4 (00:25→12:10)
[2024-06-01] MEDS: ACETAMINOPHEN 325 MG TABLET 650 MG PO ×3 (00:25→12:10)
[2024-06-01] MEDS: ALPRAZolam 0.25 MG TABLET PO ×2 (00:26→07:43)
[2024-06-01 08:00] VITALS: BP 100/55; PULSE 75; RESP 16; O2SAT 99
[2024-06-01] MEDS: DOCUSATE 100 MG CAPSULE 200 MG PO (08:16)
--- NOTE | 2024-06-01 12:51 | PC.NURSE ---
Day shift: Discharge instructions gone over with patient. Patient stated understanding, all questions answered. PIV d/c'ed prior to discharge. All belongings with patient. PCT Ginal escorted patient to exit via wheelchair.
--- NOTE | 2024-06-04 21:22 | PM.PNPO.1 ---
Subjective Subjective Date Patient Seen: 05/31/24 Time Patient Seen: 11:00 Interval history: Patient is postop day 1 status post laparoscopic supracervical hysterectomy and bilateral salpingectomy. She had some difficulty voiding after the surgery. A Cutler catheter was placed last night. It has been removed this morning, but she has not voided as of yet. Pain is being managed Dilaudid IV and oral Tylenol and ibuprofen. She was ambulated. She has tolerating a diet. Exam Vital Signs (past 8 hours): Oxygen Delivery Method Room Air Oxygen Flow Rate 0 Narrative Exam Narrative: Generally: Patient is sitting up in bed, no acute distress Lungs: Clear to auscultation bilaterally Cardiovascular: Regular rate and rhythm Abdomen: Soft and flat. Incisions: Clean dry and intact with Allevyn dressings Extremities: No edema, negative Homans Objective Labs 05/31/24 04:40 05/30/24 16:32 [facility] Medical History (Updated 05/30/24 @ 11:57 by Nati Roche MD) Abdominal trauma Healthy adult Surgical History (Updated 05/30/24 @ 11:55 by Nati Roche MD) S/P laparotomy History of colonoscopy Social History marital status: household members: spouse and children Smoking Status: Never smoker alcohol intake: never Assessment & Plan Post-op Postoperative Procedures: Procedures Operation Date: 05/30/24 12:45 Actual Procedure Side Surgeon p Laparoscopic Supracervical Hysterectomy with bilateral salpingectomy, lysis of adhesion Nati Roche MD Postoperative day: 1 Postoperative status: urinary retention (Required a Cutler catheter overnight) and marginal pain control Postoperative plan: voiding trials Postoperative plan narrative: Bladder trial today Switched to oral pain meds Anticipate discharge June 01, 2024 Time Spent With Patient Time with patient: 15-24 minutes
--- NOTE | 2024-06-04 21:25 | PM.DS.1 ---
History of Present Illness History of Present Illness Date Patient Seen: 06/01/24 Time Patient Seen: 07:45 Chief complaint: JOURNEYMAN MOLDER *OPB* Narrative: Postop day # 2 status post laparoscopic supracervical hysterectomy with bilateral salpingectomy and lysis of omental to anterior abdominal wall adhesions. Patient was able to void yesterday without a catheter. Her pain is better controlled. She has tolerating a diet. No nausea or vomiting. She is ambulating without assistance. She is passing flatus. Discharge Providers Provider Discharge Date: 06/01/24 Primary care physician: Jorge Andrade MD Discharge provider: Nati Roche MD Summary Hospital Course Discharge Diagnosis: Pelvic pain Pelvic congestion Hospital Course: Patient is a 38-year-old who presented on May 31, 2024 for a scheduled laparoscopic supracervical hysterectomy with bilateral salpingectomy. She underwent this procedure along with lysis of omental to anterior abdominal wall adhesions without complication. On postop day # 0-1, she had urinary retention which required the Cutler catheter to be placed overnight. She initially had some struggles on postop day # 1 with voiding but that resolved in the early evening. Pain management was difficult in the first 24 hours but then better on the second day. Status at Discharge Cognitive/behavioral status at discharge: oriented Functional status at discharge: independent ambulation Overall status at discharge: patient is progressing back to baseline Time Spent with Patient Time spent: Less than 30 minutes Exam Vital Signs (past 8 hours): Oxygen Delivery Method Room Air Oxygen Flow Rate 0 Narrative Exam Narrative: Generally: Patient is sitting up in bed, no acute distress Lungs: Clear to auscultation bilaterally Cardiovascular: Regular rate and rhythm Abdomen: Soft and flat. Incisions: Clean dry and intact with Allevyn dressings Extremities: No edema, negative Homans Objective Labs 05/31/24 04:40 05/30/24 16:32 [facility] Medical History (Updated 05/30/24 @ 11:57 by Nati Roche MD) Abdominal trauma Healthy adult Surgical History (Updated 05/30/24 @ 11:55 by Nati Roche MD) S/P laparotomy History of colonoscopy Social History marital status: household members: spouse and children Smoking Status: Never smoker alcohol intake: never Discharge Assessment & Plan Assessment and Plan Assessment: Postop day # 2 status post laparoscopic supracervical hysterectomy/bilateral salpingectomy/lysis of adhesions Patient doing very well Plan of Treatment: Discharged home Follow-up in 2 weeks Discharge Plan Discharge Plan Patient Disposition: Home Provider Discharge Comment: Call with fever, chills, redness or drainage around the incisions, or bleeding vaginally more than spotting to light Ibuprofen 600 mg every 6 hours as needed for cramping Tylenol 650 mg every 6 hours as needed Stool softeners until bowel returned to normal Discharge orders & Medications Discharge Orders: Discharge (Order); Ordered 06/01/24 Ordered By: Nati Roche Prescriptions: New ondansetron 4 mg tablet,disintegrating 4 mg PO Q6H PRN (Reason: nausea and vomiting) Qty: 10 0RF hydromorphone [Dilaudid] 2 mg tablet 2 mg PO Q4H Qty: 20 0RF Continued alprazolam [Xanax] 0.25 mg tablet 0.25 mg PO BID PRN (Reason: anxiety) Qty: 7 0RF Discontinued oxycodone 5 mg tablet 5 mg PO Q6H PRN (Reason: pain) Qty: 20 0RF Follow up/Referrals: Nati Roche MD [Physician] - As previously scheduled (Pt has postop visits scheduled) Diet/Activity/Treatments Diet: Regular Skin/Wound/Dressing Care Report to your healthcare provider any signs of infection, such as:: chills, fever, increased pain, unusual drainage and unusual redness Dressing: Remove outer pink dressings with attached guaze on morning after a shower. Leave steri strips in place for 2 weeks May shower daily Visit Report/Discharge Packet Instructions: DI for Hysterectomy, DI for Laparoscopy, DI for Prescription Opioid Use Stand Alone Forms: Patient Portal/API, Surgery Discharge Discharge Data Primary Care Provider: Jorge Andrade Attending Provider: Nati Roche
== END 2024-06-01 12:40 | disposition home or self-care (01) ==
LOC: OR 11:33 → AC 11:34
PROVIDERS: PCP Family Medicine; Referring Provider Obstetrics & Gynecology; Visit Provider Obstetrics & Gynecology
PROC: 0UT94ZL Resection of Uterus, Supracervical, Percutaneous Endoscopic Approach (ICD-10-PCS; CPT 58542; principal; 2024-05-30 12:45)
DX: R10.2 Pelvic and perineal pain (principal); N83.8 Other noninflammatory disorders of ovary, fallopian tube and broad ligament
CPT/HCPCS: 58542; 36415; 82565; 85025; J0330; J0690; J1100; J1170; J1171; J1885; J2250; J2405; J2704; J2795; J3010; J3410; J3490

== ENCOUNTER 2024-06-12 13:24 | Emergency (ER) | payer OTHER, SELFPAY ==
[2024-05-30 16:30] VITALS: BMI 18.8
[2024-06-12 13:40] VITALS: BP 121/69; PULSE 77; RESP 16; TEMP 36.7; O2SAT 98; BMI 18.8
--- NOTE | 2024-06-12 13:48 | ED.ABDPAIN ---
HPI - Abdominal Pain General Chief Complaint: Abdominal Pain Stated Complaint: ABD px Time Seen by Provider: 06/12/24 13:59 Source: EMS Mode of arrival: EMS History of Present Illness HPI narrative: Patient is a 38-year-old female history of no significance presents to the emergency department for abdominal pain. To note patient did have laparoscopic supracervical hysterectomy with bilateral salpingectomy and lysis of adhesions performed by Dr. Roche (OBGYN) on 05/30/2024. She states that she has been having normal postop pains over the past few days is due for her follow-up in proximally 1 week. States that she has been taking her opiates and her stool softeners as prescribed, has had normal bowel movement did have a bowel movement earlier today prior to arrival. However she states that she is having worsening abdominal pain nausea vomiting therefore decided come into the ED for further evaluation treatment. Related Data Previous Rx's Medication Instructions Recorded alprazolam 0.25 mg tablet (Xanax) 0.25 mg PO BID PRN anxiety #7 tabs 05/25/24 hydromorphone 2 mg tablet 2 mg PO Q4H #20 tabs 05/31/24 (Dilaudid) ondansetron 4 mg disintegrating 4 mg PO Q6H PRN nausea and 05/31/24 tablet vomiting #10 tabs metoclopramide HCl 10 mg tablet 10 mg PO Q6H PRN nausea and 06/12/24 (Reglan) vomiting 7 days #28 tabs Allergies Allergy/AdvReac Type Severity Reaction Status Date / Time latex Allergy Mild LOCAL RASH Verified 05/30/24 12:07 Review of Systems Review of Systems Narrative: General: Denies fever, chills, weight loss HEENT: Denies headache, eye drainage, eye irritation, head trauma, sore throat, voice change Cardiovascular: Denies any chest pain, palpitations, shortness of breath, tachycardia Respiratory: Denies any shortness of breath, cough, wheeze, stridor GI/: Positive abdominal pain, nausea, vomiting, denies diarrhea, bright red blood per rectum, melanotic stools, urinary frequency, urinary retention, dysuria, hematuria MSK: Denies any joint pain, muscle pains, swelling Skin: Denies any rashes, lesions, discoloration Neuro: Denies any headache, lightheadedness, dizziness, fainting, weakness Psych: Denies SI/HI Patient History Medical History (Updated 06/12/24 @ 15:37 by Ramón Bautista DO) Abdominal trauma Healthy adult Surgical History (Updated 05/30/24 @ 11:55 by Nati Roche MD) S/P laparotomy History of colonoscopy Social History marital status: household members: spouse and children Smoking Status: Never smoker alcohol intake: never Smoking Status: Never smoker alcohol intake frequency: other Alcohol type: hard liquor Substance Use Type: does not use Exam Narrative Exam Narrative: General: Cooperative, comfortable, well-developed, not in acute distress HEENT: Normocephalic, atraumatic, PERRLA, normal sclera, eyelids normal, Neck: Active full range of motion, atraumatic Chest: Normal to inspection, negative crepitus, no overlying erythema ecchymosis Respiratory: Normal respiratory effort, not in acute respiratory distress, clear to auscultation bilaterally negative cough, wheeze, tachypnea, rhonchi, rales Cardiology: Regular rate rhythm negative gallop, murmur, rubs GI/: Mild tenderness to palpation diffusely to the abdomen, patient with well-healing scars indicative of recent laparoscopic surgery. There is no purulent discharge or erythema noted to the sites. MSK: Full range of active range of motion of all 4 extremities, atraumatic Skin: No rashes lesions noted Neuro: Alert awake oriented x3, moves all 4 extremities spontaneously, cranial nerves intact, able to answer all questions appropriately follows commands appropriately Psych: Cooperative, negative suicidal or homicidal ideations Initial Vital Signs Initial Vital Signs: Vital Signs Temperature 98.0 F 06/12/24 13:40 Pulse Rate 77 06/12/24 13:40 Respiratory Rate 16 06/12/24 13:40 Blood Pressure 121/69 06/12/24 13:40 Pulse Oximetry 98 06/12/24 13:40 Oxygen Delivery Method Room Air 06/12/24 13:40 Course Orders Ordered: ED Orders 06/12/24 13:28 Complete Blood Count AUTO DIFF Stat Comprehensive Metabolic Panel Stat Lactate (Lactic Acid) Stat Lipase Stat 06/12/24 13:55 CT abdomen pelvis w con Stat Discontinued Medications Hydromorphone HCl (Hydromorphone 0.5 Mg Inj) 0.5 mg IV NOW ONE Stop: 06/12/24 14:46 Last Admin: 06/12/24 14:42 Dose: 0.5 mg Documented By: ALFREDITO Morphine Sulfate (Morphine 4 Mg/Ml Inj) 4 mg IV NOW ONE Stop: 06/12/24 13:54 Last Admin: 06/12/24 14:02 Dose: 4 mg Documented By: ALFREDITO Ondansetron HCl (Ondansetron 4 Mg/2 Ml Inj) 4 mg IV NOW ONE Stop: 06/12/24 13:54 Last Admin: 06/12/24 14:30 Dose: 4 mg Documented By: ALFREDITO Vital Signs Vital signs: Vital Signs - 8 hr 06/12/24 13:40 Temperature 98.0 F Pulse Rate 77 Respiratory Rate 16 Blood Pressure 121/69 Pulse Oximetry 98 Oxygen Delivery Method Room Air MDM - Abdominal Pain Differential Diagnosis Differential diagnosis: Likely abdominal pain, constipation, diverticulitis and small bowel obstruction Lab Data 06/12/24 13:28 06/12/24 13:28 Labs: Lab Results 06/12/24 Range/Units 13:28 WBC 12.2 H (4.5-11.0) X10^3/uL RBC 3.42 L (4.0-5.2) X10^6/uL Hgb 11.4 L (12.0-16.0) g/dL Hct 32.7 L (36-46) % MCV 95.8 (80-100) fL MCH 33.3 (26-34) PG MCHC 34.8 (30-36) % RDW 12.5 (11.6-14.8) % Plt Count 462 H (150-400) X10^3/uL Neut % (Auto) 82.2 H (50-75) % Lymph % (Auto) 11.9 L (25-40) % [place] % (Auto) 4.3 (3-14) % Eos % (Auto) 1.3 L (2-4) % Baso % (Auto) 0.3 (0-2) % Neut # (Auto) 07094 H (2298-2812) /uL Lymph # (Auto) 1500 (5069-0911) /uL [place] # (Auto) 500 (0-900) /uL Eos # (Auto) 200 (0-450) /uL Baso # (Auto) 0 (0-100) /uL Sodium 135 L (137-145) mmol/L Potassium 4.1 (3.4-5.1) mmol/L Chloride 103 (98-107) mmol/L Carbon Dioxide 24 (22-32) mmol/L BUN 9 (7-17) mg/dL Creatinine 0.51 L (0.52-1.04) mg/dL Estimated GFR > 60 (>60) mL/min BUN/Creatinine Ratio 17.6 (6-22) Glucose 106 H (70-100) mg/dL Lactate 1.1 (0.7-2.1) mmol/L Calcium 9.6 (8.4-10.2) mg/dL Total Bilirubin 0.6 (0.2-1.3) mg/dL AST 25 (14-36) IU/L ALT 24 (<35) IU/L Alkaline Phosphatase 80 (38-126) U/L Total Protein 7.4 (6.3-8.2) g/dL Albumin 4.4 (3.5-5.0) g/dL Globulin 3.0 (1.7-4.1) g/dL Albumin/Globulin Ratio 1.5 (1.0-2.8) Lipase 68 (23-300) U/L Imaging Data CT scan - abdomen/pelvis: Radiologist's Impression: PROCEDURE: CT ABDOMEN PELVIS W CON INDICATIONS: abd pain , status post laparoscopic hysterectomy TECHNIQUE: After the administration of intravenous contrast, axial sections acquired from the lung bases to the pubic symphysis. Coronal and sagittal reformats were performed. For radiation dose reduction, the following was used: automated exposure control, adjustment of mA and/or kV according to patient size. COMPARISON: [facility], CT, CT ABDOMEN PELVIS W CON, 04/18/2024, 4:34. FINDINGS: Image quality: Diagnostic. Lower Chest: Mammoplasty implants are incidentally noted. ABDOMEN: Liver: No solid mass. Gallbladder: No radiopaque gallstones or wall thickening. Biliary ducts: No biliary dilation. Pancreas: No ductal dilation. Spleen: Size is within normal limits. Adrenal Glands: No adrenal nodules. Kidneys and Ureters: No hydronephrosis. No solid mass. No complex renal cystic lesion which requires follow up. Bowel and peritoneum: Several loops of prominent small bowel can be seen, measuring up to 2.6 cm. There is a moderate volume of fluid seen within the stomach. No significant colonic abnormality is seen. No significant free air is seen. Ventral Wall: No significant ventral hernia. Abdominal Nodes: No retroperitoneal or mesenteric adenopathy by size criteria. Vessels: Aorta and inferior vena cava are normal in size. Prominence of the left gonadal vein is again seen. PELVIS: Pelvic Organs: Hysterectomy changes are seen. There is a small amount of free fluid seen within the pelvis, yet without an abscess seen. No adnexal masses are seen on either side. A likely hemorrhagic cyst of the right ovary can be seen, as on series 2, image 108, measuring 2 cm. Bladder: No bladder wall thickening, accounting for underdistention. Pelvic Nodes: No enlarged lymph nodes. Miscellaneous: No inguinal hernias are seen. Bones: No aggressive osseous abnormality. IMPRESSION: Status post hysterectomy, without a postoperative abscess seen. There is a small amount of free fluid seen within the pelvis, which is regarded to be within postoperative limits. Mildly prominent loops of small bowel are seen that measure up to 2.6 cm. Postoperative ileus is suspected. Small bowel obstruction is regarded to be less likely. Likely 2 cm hemorrhagic cyst of the right ovary. Please correlate with patient history, however. If clinically appropriate, please consider short-term follow-up. Additional findings: Mammoplasty implants Prominence of the left gonadal vein, as before MDM Narrative Medical decision making narrative: Patient is a 38-year-old female status post laparoscopic hysterectomy with bilateral salpingectomy on 05/30/[address] Roche (OBGYN). Has been doing find status post surgery, however today started having worsening abdominal pain. Did have a bowel movement prior to arrival. Has had nausea and vomiting secondary to the pain. Is due to follow up with OBGYN in approximately 1 week. Patient with mild leukocytosis of 12.2, however most likely elevated secondary to recent surgery. Patient with normal lactate, CT scan showing postop ileus with normal postop findings no acute findings noted. 1525: Discussed case with OBGYN doctor Ana, agrees with current workup and plan will send patient home on p.o. Reglan, they state that they will reach out to her tomorrow to follow up on her. On re-evaluation of the patient patient with significant improvement of symptoms tolerating p.o. liquids and solids, no longer having any nausea or vomiting. Repeat abdominal exam is soft nontender non peritoneal in nature. Patient was given strict return precautions safe for discharge home with outpatient follow up Discharge Plan Departure Patient Disposition: Home Clinical Impression: Ileus, postoperative Activity Restrictions/Additional Instructions: Please follow-up with your OBGYN Please read the discharge instructions sheet carefully and bring all papers to all doctor follow-up visits, as it may contain information that your doctor may want to see. Disease processes change and evolve, if your symptoms worsen or if you develop any new symptoms that are concerning to you please return for evaluation. Your evaluation today does not show any evidence of any life-threatening/serious illnesses requiring admission to the hospital or surgery. Please follow-up with your doctor for re-evaluation in approximately 1 day. Seek immediate medical attention for any worrisome symptoms. Prescriptions: New metoclopramide HCl [Reglan] 10 mg tablet 10 mg PO Q6H PRN (Reason: nausea and vomiting) 7 Days Qty: 28 0RF No Action alprazolam [Xanax] 0.25 mg tablet 0.25 mg PO BID PRN (Reason: anxiety) Qty: 7 0RF ondansetron 4 mg tablet,disintegrating 4 mg PO Q6H PRN (Reason: nausea and vomiting) Qty: 10 0RF hydromorphone [Dilaudid] 2 mg tablet 2 mg PO Q4H Qty: 20 0RF Referrals: Jorge Andrade MD [Primary Care Provider] - Stand Alone Forms: Patient Portal/API
--- NOTE | 2024-06-12 13:55 | DI.CT.S_ITS ---
PROCEDURE: CT ABDOMEN PELVIS W CON INDICATIONS: abd pain , status post laparoscopic hysterectomy TECHNIQUE: After the administration of intravenous contrast, axial sections acquired from the lung bases to the pubic symphysis. Coronal and sagittal reformats were performed. For radiation dose reduction, the following was used: automated exposure control, adjustment of mA and/or kV according to patient size. COMPARISON: [facility], CT, CT ABDOMEN PELVIS W CON, 04/18/2024, 4:34. FINDINGS: Image quality: Diagnostic. Lower Chest: Mammoplasty implants are incidentally noted. ABDOMEN: Liver: No solid mass. Gallbladder: No radiopaque gallstones or wall thickening. Biliary ducts: No biliary dilation. Pancreas: No ductal dilation. Spleen: Size is within normal limits. Adrenal Glands: No adrenal nodules. Kidneys and Ureters: No hydronephrosis. No solid mass. No complex renal cystic lesion which requires follow up. Bowel and peritoneum: Several loops of prominent small bowel can be seen, measuring up to 2.6 cm. There is a moderate volume of fluid seen within the stomach. No significant colonic abnormality is seen. No significant free air is seen. Ventral Wall: No significant ventral hernia. Abdominal Nodes: No retroperitoneal or mesenteric adenopathy by size criteria. Vessels: Aorta and inferior vena cava are normal in size. Prominence of the left gonadal vein is again seen. PELVIS: Pelvic Organs: Hysterectomy changes are seen. There is a small amount of free fluid seen within the pelvis, yet without an abscess seen. No adnexal masses are seen on either side. A likely hemorrhagic cyst of the right ovary can be seen, as on series 2, image 108, measuring 2 cm. Bladder: No bladder wall thickening, accounting for underdistention. Pelvic Nodes: No enlarged lymph nodes. Miscellaneous: No inguinal hernias are seen. Bones: No aggressive osseous abnormality. IMPRESSION: Status post hysterectomy, without a postoperative abscess seen. There is a small amount of free fluid seen within the pelvis, which is regarded to be within postoperative limits. Mildly prominent loops of small bowel are seen that measure up to 2.6 cm. Postoperative ileus is suspected. Small bowel obstruction is regarded to be less likely. Likely 2 cm hemorrhagic cyst of the right ovary. Please correlate with patient history, however. If clinically appropriate, please consider short-term follow-up. Additional findings: Mammoplasty implants Prominence of the left gonadal vein, as before Dictated by: Ryne Marcus M.D. on 06/12/2024 at 13:55 Approved by: Ryne Marcus M.D. on 06/12/2024 at 14:00
[2024-06-12] MEDS: MORPHINE 4 MG/ML INJ IV (14:02)
[2024-06-12 14:07] LABS: Add Manual Diff / Slide Review NO; Basophils Absolute Auto 0 /uL (0-100); Basophils Percent Auto 0.3 % (0-2); Eosinophils Absolute Auto 200 /uL (0-450); Eosinophils Percent Auto 1.3 % (2-4); Hematocrit 32.7 % (36-46); Hemoglobin 11.4 g/dL (12.0-16.0); Lymphocytes Absolute Auto 1500 /uL (1100-4500); Lymphocytes Percent Auto 11.9 % (25-40); Mean Corpuscular HGB Conc 34.8 % (30-36); Mean Corpuscular Hemoglobin 33.3 PG (26-34); Mean Corpuscular Volume 95.8 fL (80-100); Monocytes Absolute Auto 500 /uL (0-900); Monocytes Percent Auto 4.3 % (3-14); Neutrophils Absolute Auto 10100 /uL (1500-7000); Neutrophils Percent Auto 82.2 % (50-75); Platelet Count 462 X10^3/uL (150-400); Red Blood Cell Count 3.42 X10^6/uL (4.0-5.2); Red Cell Distribution Width 12.5 % (11.6-14.8); White Blood Cell Count 12.2 X10^3/uL (4.5-11.0)
[2024-06-12 14:12] LABS: Lactate (Lactic Acid) 1.1 mmol/L (0.7-2.1)
[2024-06-12 14:13] LABS: Alanine Aminotransferase 24 IU/L (<35); Albumin 4.4 g/dL (3.5-5.0); Albumin Globulin Ratio 1.5 (1.0-2.8); Alkaline Phosphatase 80 U/L (38-126); Aspartate Aminotransferase 25 IU/L (14-36); BUN Creatinine Ratio 17.6 (6-22); Bilirubin Total 0.6 mg/dL (0.2-1.3); Blood Urea Nitrogen 9 mg/dL (7-17); Calcium 9.6 mg/dL (8.4-10.2); Carbon Dioxide 24 mmol/L (22-32); Chloride 103 mmol/L (98-107); Estimated Glomerular Filt Rate > 60 mL/min (>60); Glucose 106 mg/dL (70-100); HEMOLYSIS < 15 (0-50); Lipase 68 U/L (23-300); Potassium 4.1 mmol/L (3.4-5.1); Sodium 135 mmol/L (137-145); Total Protein 7.4 g/dL (6.3-8.2)
[2024-06-12] MEDS: ONDANSETRON 4 MG/2 ML INJ IV (14:30)
[2024-06-12] MEDS: HYDROMORPHONE 0.5 MG INJ IV (14:42)
[2024-06-12 14:52] VITALS: PULSE 86; O2SAT 100
[2024-06-12 15:00] VITALS: BP 106/72; PULSE 85; O2SAT 99
[2024-06-12 15:30] VITALS: BP 107/68; PULSE 74; O2SAT 99
[2024-06-12 15:48] VITALS: BP 107/68; PULSE 79; RESP 16; O2SAT 100
== END 2024-06-12 15:50 | disposition home or self-care (01) ==
PROVIDERS: Emergency Provider Student in an Organized Health Care Education/Training Program; PCP Family Medicine
DX: K91.89 Other postprocedural complications and disorders of digestive system (principal); K56.7 Ileus, unspecified; Z90.710 Acquired absence of both cervix and uterus
CPT/HCPCS: 74177; 80053; 83605; 83690; 85025; 96374; 96375; 99284; J1171; J2270; J2405; Q9967

== ENCOUNTER 2024-06-13 10:09 | Inpatient (IN) | payer OTHER, SELFPAY ==
[2024-05-30 16:30] VITALS: BMI 18.8
[2024-06-13 10:11] VITALS: BMI 19.1
[2024-06-13] MEDS: METOCLOPRAMIDE 10 MG/2 ML INJ IV ×3 (10:19→23:55)
[2024-06-13] MEDS: MORPHINE 4 MG/ML INJ IV (10:19)
[2024-06-13 10:27] VITALS: BP 115/71; PULSE 85; TEMP 36.5; O2SAT 95
[2024-06-13] MEDS: LORazepam 2 MG/ML INJ 0.5 MG IV ×2 (10:40→21:22)
[2024-06-13] MEDS: LACTATED RINGERS 1,000 ML 100 ML IV (10:40)
--- NOTE | 2024-06-13 12:06 | P.HPOB_ITS ---
History of Present Illness History of Present Illness Reason for admission: other (Postoperative ileus) Narrative: Jerica Bianchi is a 38 year old female admitted for treatment for postoperative ileus. [facility] Medical History (Updated 06/12/24 @ 15:37 by Ramón Bautista DO) Abdominal trauma Healthy adult Surgical History (Updated 06/13/24 @ 12:08 by Frida Perez MD) S/P laparoscopic supracervical hysterectomy (~04/29/24) S/P laparotomy History of colonoscopy Social History marital status: household members: spouse and children Smoking Status: Never smoker alcohol intake: never Meds Home Medications and Allergies Home Medications Medication Instructions Recorded Confirmed Type alprazolam 0.25 mg tablet (Xanax) 0.25 mg PO BID PRN anxiety #7 tabs 05/25/24 05/30/24 Rx hydromorphone 2 mg tablet 2 mg PO Q4H #20 tabs 05/31/24 Rx (Dilaudid) ondansetron 4 mg disintegrating 4 mg PO Q6H PRN nausea and 05/31/24 Rx tablet vomiting #10 tabs metoclopramide HCl 10 mg tablet 10 mg PO Q6H PRN nausea and 06/12/24 Rx (Reglan) vomiting 7 days #28 tabs Allergies Allergy/AdvReac Type Severity Reaction Status Date / Time latex Allergy Mild LOCAL RASH Verified 05/30/24 12:07 Review of Systems Review of Systems Narrative: Patient complaining of severe cramping abdominal pain with nausea and vomiting. No vaginal bleeding. No fevers. No headache. No chest pains or shortness of breath. No dizziness or fatigue other than she was unable to sleep last night due to the pain. Exam Vital Signs (past 8 hours): - 06/13/24 10:27 Temperature 97.7 F Pulse Rate 85 Blood Pressure 115/71 Pulse Oximetry 95 Oxygen Flow Rate 0 Oxygen Flow Rate 0 Narrative Exam Narrative: HEENT exam within normal limits. Lungs are clear to auscultation percussion. Heart is regular rate and rhythm no S3-S4 murmurs. Abdomen is soft, minimally tender. Minimal distention. Few bowel sounds. Incisions are clean, dry, intact. Extremities without edema and nontender. Objective Imaging CT scan - abdomen: Radiologist's impression: tient: Jerica Kelley MR#: [id number] : 1985 Acct:[id number] Age/Sex: 38 / F Date of Service: 06/12/24 Loc: ED Accession Number: [id number] Procedure: CT abdomen pelvis w con Ordering Provider: Ramón Bautista D.O. PROCEDURE: CT ABDOMEN PELVIS W CON INDICATIONS: abd pain , status post laparoscopic hysterectomy TECHNIQUE: After the administration of intravenous contrast, axial sections acquired from the lung bases to the pubic symphysis. Coronal and sagittal reformats were performed. For radiation dose reduction, the following was used: automated exposure control, adjustment of mA and/or kV according to patient size. COMPARISON: [facility], CT, CT ABDOMEN PELVIS W CON, 04/18/2024, 4:34. FINDINGS: Image quality: Diagnostic. Lower Chest: Mammoplasty implants are incidentally noted. ABDOMEN: Liver: No solid mass. Gallbladder: No radiopaque gallstones or wall thickening. Biliary ducts: No biliary dilation. Pancreas: No ductal dilation. Spleen: Size is within normal limits. Adrenal Glands: No adrenal nodules. Kidneys and Ureters: No hydronephrosis. No solid mass. No complex renal cystic lesion which requires follow up. Bowel and peritoneum: Several loops of prominent small bowel can be seen, measuring up to 2.6 cm. There is a moderate volume of fluid seen within the stomach. No significant colonic abnormality is seen. No significant free air is seen. Ventral Wall: No significant ventral hernia. Abdominal Nodes: No retroperitoneal or mesenteric adenopathy by size criteria. Vessels: Aorta and inferior vena cava are normal in size. Prominence of the left gonadal vein is again seen. PELVIS: Pelvic Organs: Hysterectomy changes are seen. There is a small amount of free fluid seen within the pelvis, yet without an abscess seen. No adnexal masses are seen on either side. A likely hemorrhagic cyst of the right ovary can be seen, as on series 2, image 108, measuring 2 cm. Bladder: No bladder wall thickening, accounting for underdistention. Pelvic Nodes: No enlarged lymph nodes. Miscellaneous: No inguinal hernias are seen. Bones: No aggressive osseous abnormality. IMPRESSION: Status post hysterectomy, without a postoperative abscess seen. There is a small amount of free fluid seen within the pelvis, which is regarded to be within postoperative limits. Mildly prominent loops of small bowel are seen that measure up to 2.6 cm. Postoperative ileus is suspected. Small bowel obstruction is regarded to be less likely. Likely 2 cm hemorrhagic cyst of the right ovary. Please correlate with patient history, however. Labs Labs: See chart for 06/12/24 Assessment & Plan Assessment and plan (1) Ileus, postoperative: Status: Acute Assessment & Plan narrative: Patient with postoperative ileus status post laparoscopic supracervical hysterectomy with bilateral salpingectomy and lysis of adhesion on 05/30/2024. Patient had labs and CT scan in the emergency room yesterday consistent with postop ileus. Patient was feeling better so was discharged home but was unable to keep down the Reglan prescribed for her in unable to take pain medicine due to the vomiting. Patient is admitted for IV fluid hydration and IV pain medicines. Time-Based Coding :: [TOTAL MINUTES] spent with patient and on the chart (including review of chart, obtaining history, exam, reviewing outside data, placing orders, documenting exam and treatment plan, and counseling patient) on [DATE].
[2024-06-13] MEDS: ONDANSETRON 4 MG/2 ML INJ IV ×2 (13:33→21:06)
[2024-06-13] MEDS: HYDROMORPHONE 2 MG INJ IV (13:34)
--- NOTE | 2024-06-13 14:58 | PC.NURSE ---
Day shift: Patient arrived (direct admit) crying and writhing in pain. Dry heaving as well. In position. Rating pain 10/10. IV morphine + IV ativan + IV reglan given - patient reported being much more comfortable. Called MD Foist to clarify if patient should be on a clear liquid diet or NPO due to ileus. MD stated general diet is fine. Asked about general surgery consult, MD said no. Asked about adding PO pain medication and decreasing IV dilaudid dose from 2mg IV. MD stated she would change the orders. Patient able to tolerate sips of juice and bites of jello. Rating pain 5/10 this afternoon. LR running at 100mL/hr. Encouraged ambulation, patient so far has declined. Will continue to monitor.
[2024-06-13] MEDS: ACETAMINOPHEN 325 MG TABLET 650 MG PO (15:49)
[2024-06-13] MEDS: KETOROLAC 30 MG/ML VIAL IV ×2 (15:49→21:06)
[2024-06-13 16:00] VITALS: BP 101/57; PULSE 57; RESP 14; TEMP 36.6; O2SAT 97
[2024-06-13] MEDS: HYDROMORPHONE 1 MG INJ IV ×3 (18:41→23:55)
[2024-06-13 20:00] VITALS: BP 101/51; PULSE 65; RESP 12; TEMP 36.7; O2SAT 94
[2024-06-13] MEDS: DOCUSATE 100 MG CAPSULE 200 MG PO (21:06)
[2024-06-14] MEDS: HYDROMORPHONE 1 MG INJ IV ×3 (02:15→15:58)
[2024-06-14] MEDS: ONDANSETRON 4 MG/2 ML INJ IV ×3 (02:55→16:08)
[2024-06-14] MEDS: KETOROLAC 30 MG/ML VIAL IV ×4 (02:55→20:35)
[2024-06-14] MEDS: FAMOTIDINE 20 MG TABLET PO (03:17)
[2024-06-14 04:00] VITALS: BP 89/45; PULSE 69; RESP 12; TEMP 36.4; O2SAT 97
[2024-06-14 05:00] VITALS: BP 98/53
[2024-06-14] MEDS: METOCLOPRAMIDE 10 MG/2 ML INJ IV (05:30)
[2024-06-14 06:53] LABS: Add Manual Diff / Slide Review NO; Basophils Absolute Auto 0 /uL (0-100); Basophils Percent Auto 0.1 % (0-2); Eosinophils Absolute Auto 0 /uL (0-450); Eosinophils Percent Auto 0.3 % (2-4); Hemoglobin 10.7 g/dL (12.0-16.0); Lymphocytes Absolute Auto 700 /uL (1100-4500); Lymphocytes Percent Auto 4.4 % (25-40); Mean Corpuscular HGB Conc 35.6 % (30-36); Mean Corpuscular Hemoglobin 33.6 PG (26-34); Mean Corpuscular Volume 94.5 fL (80-100); Monocytes Absolute Auto 600 /uL (0-900); Monocytes Percent Auto 4.3 % (3-14); Neutrophils Absolute Auto 13600 /uL (1500-7000); Neutrophils Percent Auto 90.9 % (50-75); Platelet Count 374 X10^3/uL (150-400); Red Blood Cell Count 3.17 X10^6/uL (4.0-5.2); Red Cell Distribution Width 12.6 % (11.6-14.8)
[2024-06-14] MEDS: LACTATED RINGERS 1,000 ML 100 ML IV ×2 (07:07→12:38)
[2024-06-14 07:14] LABS: Alanine Aminotransferase 16 IU/L (<35); Albumin 3.8 g/dL (3.5-5.0); Albumin Globulin Ratio 1.5 (1.0-2.8); Alkaline Phosphatase 58 U/L (38-126); Aspartate Aminotransferase 19 IU/L (14-36); BUN Creatinine Ratio 21.1 (6-22); Bilirubin Total 0.9 mg/dL (0.2-1.3); Blood Urea Nitrogen 12 mg/dL (7-17); Calcium 9.4 mg/dL (8.4-10.2); Carbon Dioxide 27 mmol/L (22-32); Chloride 98 mmol/L (98-107); Estimated Glomerular Filt Rate > 60 mL/min (>60); Globulin 2.6 g/dL (1.7-4.1); Glucose 99 mg/dL (70-100); HEMOLYSIS < 15 (0-50); Potassium 3.8 mmol/L (3.4-5.1); Sodium 132 mmol/L (137-145); Total Protein 6.4 g/dL (6.3-8.2)
[2024-06-14] MEDS: LORazepam 2 MG/ML INJ 0.5 MG IV ×2 (07:14→14:00)
[2024-06-14 08:00] VITALS: BP 95/58; PULSE 55; RESP 16; TEMP 36.8; O2SAT 94
--- NOTE | 2024-06-14 08:39 | DI.CT.S_ITS ---
PROCEDURE: CT ABDOMEN PELVIS W CON INDICATIONS: Postop ileus vs. SBO TECHNIQUE: After the administration of intravenous contrast, axial sections acquired from the lung bases to the pubic symphysis. Coronal and sagittal reformats were performed. For radiation dose reduction, the following was used: automated exposure control, adjustment of mA and/or kV according to patient size. COMPARISON: [facility], CT, CT ABDOMEN PELVIS W CON, 06/12/2024, 14:05. FINDINGS: Image quality: Diagnostic. Lower Chest: No significant findings. ABDOMEN: Liver: No solid mass. Gallbladder: No radiopaque gallstones or wall thickening. Biliary ducts: No biliary dilation. Pancreas: No focal mass. No pancreatic duct dilatation or inflammatory changes. Spleen: Size is within normal limits. Adrenal Glands: No adrenal nodules. Kidneys and Ureters: No hydronephrosis. No solid mass. No complex renal cystic lesion which requires follow up. Stomach and Bowel: Dilated loops of small bowel which has progressed from previous study. There is an apparent transition point within the right lower quadrant (series 2, image 73 and series 3, image 30). The small bowel distal to this transition point appears decompressed. The colon is nondilated. Peritoneum: Small volume ascites is present throughout the abdomen and pelvis which is increased from prior study. No evidence of pneumoperitoneum. Ventral Wall: No significant ventral hernia. Abdominal Nodes: No retroperitoneal or mesenteric adenopathy by size criteria. Vessels: Aorta and inferior vena cava are normal in size. PELVIS: Pelvic Organs: Postsurgical changes from suspected prior partial hysterectomy. Bladder: No bladder wall thickening, accounting for underdistention. Pelvic Nodes: No enlarged lymph nodes. Miscellaneous: No inguinal hernias are seen. Bones: No aggressive osseous abnormality. IMPRESSION: 1. Dilated loops of small bowel which appears progressed compared to previous exam of 06/12/2024 with an apparent transition point in the right lower quadrant compatible with small bowel obstruction. 2. Interval increase in volume of ascites within the abdomen and pelvis. No evidence of pneumoperitoneum. Dictated by: Yandel Pedroza M.D. on 06/14/2024 at 10:11 Approved by: Yandel Pedroza M.D. on 06/14/2024 at 10:37
--- NOTE | 2024-06-14 08:43 | P.PN_ITS ---
Subjective Subjective Date Patient Seen: 06/14/24 Time Patient Seen: 08:00 Interval history: Patient is intractable nausea and vomiting with even minimal p.o. intake continues. Her abdominal pain and bloating seemed to be diminished somewhat. Labs this morning show elevation of WBCs, mild hyponatremia, borderline potassium levels but no magnesium levels on the chart. Will obtain Mag level and check procalcitonin/lactic acid. Currently on regular diet but will place on sips and chips for now pending results of repeat CT with contrast. Exam Vital Signs (past 8 hours): - 06/14/24 04:00 06/14/24 05:00 06/14/24 08:00 Temperature 97.6 F 98.3 F Pulse Rate 69 55 L Respiratory Rate 12 16 Blood Pressure 89/45 L 98/53 L 95/58 L Pulse Oximetry 97 94 Oxygen Flow Rate 0 Oxygen Flow Rate 0 Const General: cooperative and comfortable Nutritional Appearance: average body habitus Orientation: alert and oriented x3 HENMT Head: normal to inspection, atraumatic and abrasion Ears: hearing grossly normal bilaterally Face and sinus: face symmetric Eyes General: appearance normal, both eyes and all related structures Conjunctivae: conjunctivae normal Sclera: sclerae normal EOM: EOM intact bilaterally Neck Neck: normal visual inspection Resp Effort & Inspection: normal respiratory effort and able to speak in complete sentences Auscultation: clear to auscultation bilaterally Cardio Rate: regular rate Rhythm: regular rhythm Heart Sounds: S1 normal, S2 normal and no murmurs GI Inspection: normal to inspection and incision (Surgical dressings clean and dry) Palpation: soft, no hepatosplenomegaly and tender (Mild, diffuse postsurgical tenderness, greatest in RLQ) Auscultation: hypoactive bowel sounds External Female Exam: other (No significant bleeding noted) Extrem General: no calf tenderness Psych Appearance: grossly normal Mental Status: mental status grossly normal Speech and Movement: speech and movement normal Mood: congruent mood Affect: normal affect Attitude: cooperative Thought Process: normal Thought Content: normal Judgment: judgment good Objective Imaging CT scan - abdomen: Radiologist's impression: PROCEDURE: CT ABDOMEN PELVIS W CON INDICATIONS: Postop ileus vs. SBO TECHNIQUE: After the administration of intravenous contrast, axial sections acquired from the lung bases to the pubic symphysis. Coronal and sagittal reformats were performed. For radiation dose reduction, the following was used: automated exposure control, adjustment of mA and/or kV according to patient size. COMPARISON: [facility], CT, CT ABDOMEN PELVIS W CON, 06/12/2024, 14:05. FINDINGS: Image quality: Diagnostic. Lower Chest: No significant findings. ABDOMEN: Liver: No solid mass. Gallbladder: No radiopaque gallstones or wall thickening. Biliary ducts: No biliary dilation. Pancreas: No focal mass. No pancreatic duct dilatation or inflammatory changes. Spleen: Size is within normal limits. Adrenal Glands: No adrenal nodules. Kidneys and Ureters: No hydronephrosis. No solid mass. No complex renal cystic lesion which requires follow up. Stomach and Bowel: Dilated loops of small bowel which has progressed from previous study. There is an apparent transition point within the right lower quadrant (series 2, image 73 and series 3, image 30). The small bowel distal to this transition point appears decompressed. The colon is nondilated. Peritoneum: Small volume ascites is present throughout the abdomen and pelvis which is increased from prior study. No evidence of pneumoperitoneum. Ventral Wall: No significant ventral hernia. Abdominal Nodes: No retroperitoneal or mesenteric adenopathy by size criteria. Vessels: Aorta and inferior vena cava are normal in size. PELVIS: Pelvic Organs: Postsurgical changes from suspected prior partial hysterectomy. Bladder: No bladder wall thickening, accounting for underdistention. Pelvic Nodes: No enlarged lymph nodes. Miscellaneous: No inguinal hernias are seen. Bones: No aggressive osseous abnormality. IMPRESSION: 1. Dilated loops of small bowel which appears progressed compared to previous exam of 06/12/2024 with an apparent transition point in the right lower quadrant compatible with small bowel obstruction. 2. Interval increase in volume of ascites within the abdomen and pelvis. No evidence of pneumoperitoneum. Labs 06/14/24 06:10 06/14/24 06:10 Labs: Laboratory Results - last 24 hr 06/14/24 06:10 WBC 15.0 H RBC 3.17 L Hgb 10.7 L Hct 30.0 L MCV 94.5 MCH 33.6 MCHC 35.6 RDW 12.6 Plt Count 374 Neut % (Auto) 90.9 H Lymph % (Auto) 4.4 L [place] % (Auto) 4.3 Eos % (Auto) 0.3 L Baso % (Auto) 0.1 Neut # (Auto) 11464 H Lymph # (Auto) 700 L [place] # (Auto) 600 Eos # (Auto) 0 Baso # (Auto) 0 Sodium 132 L Potassium 3.8 Chloride 98 Carbon Dioxide 27 BUN 12 Creatinine 0.57 Estimated GFR > 60 BUN/Creatinine Ratio 21.1 Glucose 99 Calcium 9.4 Total Bilirubin 0.9 AST 19 ALT 16 Alkaline Phosphatase 58 Total Protein 6.4 Albumin 3.8 Globulin 2.6 Albumin/Globulin Ratio 1.5 PFSH Medical History (Updated 06/14/24 @ 11:24 by Fam Roca MD) Abdominal trauma Healthy adult Surgical History (Updated 06/13/24 @ 15:54 by Frida Perez MD) S/P laparoscopic supracervical hysterectomy (~05/30/24) S/P laparotomy History of colonoscopy Social History marital status: household members: spouse and children Smoking Status: Never smoker alcohol intake: never Assessment & Plan Assessment and plan (1) Ileus, postoperative: Problem details: Unclear at this point whether her symptoms are due to postop ileus or postop SBO Status: Acute (2) Hyponatremia: Status: Acute (3) Elevated WBC count: Qualifiers: Leukocytosis type: unspecified Qualified Code(s): D72.829 - Elevated white blood cell count, unspecified Status: Acute (4) Hypomagnesemia with normocalciuria: Status: Acute (5) Postoperative anemia: Status: Acute (6) Small intestine obstruction: Status: Acute Plan IV magnesium sulfate 2 g administered for correction of hypomagnesemia. Repeat abdominal CT with contrast shows increased intra-abdominal fluid and findings consistent with small-bowel obstruction in the right lower quadrant. Sepsis markers negative therefore suspect elevated white count due to ileus, pain, stress. Will obtain general surgery consult (Dr. Marli Belle) who will see the patient day in evaluate for possible surgical exploration versus conservative non-surgical management Time-Based Coding :: 45 minutes spent with patient and on the chart (including review of chart, obtaining history, exam, reviewing outside data, placing orders, documenting exam and treatment plan, and counseling patient) on [DATE]. Quality VTE Deep Vein Thrombosis/Pulmonary Embolism Present on Admission: No
[2024-06-14] MEDS: FAMOTIDINE 20 MG/2 ML VIAL IV ×2 (08:59→20:35)
[2024-06-14] MEDS: SODIUM CHLORIDE 0.9% FLUSH 10 ML IV ×2 (09:00→20:35)
[2024-06-14] MEDS: DOCUSATE 100 MG CAPSULE 200 MG PO (09:00)
--- NOTE | 2024-06-14 09:16 | DIET.CONS ---
Dietary Consultation Note Admission Date: 06/13/2024 10:09 Assessment: 38 y F admitted for post-op ileus vs SBO. RD screened for low MNA score. Met w/ pt in room. Reports weight loss before surgery related to abd discomfort and decreased po intakes. Has been working to have smaller freq meals and maintain consistent protein sources with meals. Per chart review pt initially lost 15 lb February-March, has gained 6 lb since (106 to now 112 lb). Ht: 162.56 cm Wt: 50.5 kg BMI: 19.1 UBW: 48.081 kg on 04/18/24 Last BM: 06/12/24 (06/13/24 10:11) MNA: 6 [place] Score: 22 Diet: 06/14/24 Lunch Clear Liquid Diet Diet Modifications: Sips and chips only for now Nutrition Percent Meal Consumed 25% 06/13/24 15:00 Labs: RBC 3.17 X10^6/uL (4.0-5.2) L 06/14/24 06:10 Hgb 10.7 g/dL (12.0-16.0) L 06/14/24 06:10 Hct 30.0 % (36-46) L 06/14/24 06:10 Creatinine 0.57 mg/dL (0.52-1.04) 06/14/24 06:10 Nutrition Diagnosis: Inadequate oral intake r/t alterations in GI tract aeb decreased appetite with post-op ileus vs SBO, abd pain/N/V Interventions: -Will monitor for diet advancement as medically able and po intakes Electronically Signed by: Aimee Fernandes 06/14/24 09:16 Clinical Dietitian [address] [address]
[2024-06-14 09:23] LABS: Lactate (Lactic Acid) 0.9 mmol/L (0.7-2.1); Magnesium 1.4 mg/dL (1.6-2.3)
[2024-06-14 09:39] LABS: Procalcitonin 0.046 ng/mL (<0.5)
[2024-06-14] MEDS: ACETAMINOPHEN 325 MG TABLET 650 MG PO (10:22)
[2024-06-14] MEDS: MAGNESIUM SULFATE 2 GM/50 ML PIGGYBACK IV (10:23)
--- NOTE | 2024-06-14 12:18 | CM.DANOTE ---
Initial DCP Assessment Note Pt is a 38 yo female, resident of [place], s/p COURT STENOGRAPHER procedure with Dr Roche 05/30, returns with post operative complication and suspected SBO vs ileus. Surgery consulted. PCP: Jorge Andrade Payer: Pal Jacinto Reviewed chart, pt discussed in multidisciplinary rounds this morning. Patient has persistent N/V with poor po intake. Surgery consulted. Patient lives independently with family and has planned to return home with family to assist throughout recovery. No barriers identified at this time to patient's safe discharge home w/family to assist; close outpatient f/u recommended. CM team will plan to follow clinical course closely in case any DC needs or concerns arise. FELICIA Gar Discharge Planning/Care Management CM Discharge Assessment Start: 06/14/24 12:09 Freq: Status: Active Protocol: Document 06/14/24 12:10 PARMINDER (Rec: 06/14/24 12:18 PARMINDER [id number]) Discharge Planning Assessment Assigned Finance Manager FELICIA Tierney DPOA/Assigned Designee Name Cosme Bianchi, spouse Contact Information [phone] Advance Directives? No History Provided By Patient,Medical Record Has Patient been admitted in last 30 Yes days? Comment [facility] [place] Prior Living Arrangements House Household Members spouse,children Type of transporation used prior to Drives own vehicle admit Independent with ADL's Yes Is patient alert and oriented? Yes Barriers to Discharge No Comment Home w/family to assist throughout recovery Discharge Plan Home Transportation Arrangement Family Referrals Initiated None needed
[2024-06-14] MEDS: SCOPOLAMINE 1 PATCH TOP (13:52)
[2024-06-14 14:30] VITALS: BP 116/73; PULSE 75; RESP 18; TEMP 36.9
--- NOTE | 2024-06-14 16:18 | DI.RAD.S_ITS ---
PROCEDURE: XR CHEST 1V INDICATIONS: ng placement TECHNIQUE: One view of the chest was acquired. COMPARISON: None. FINDINGS: Surgical changes and devices: Nasogastric tube is present projecting below the left hemidiaphragm. Lungs and pleura: Lungs are clear. No pleural effusions or pneumothorax. Mediastinum: Mediastinal contours appear normal. Heart size is normal. Bones and chest wall: No suspicious bony lesions. Overlying soft tissues appear unremarkable. IMPRESSION: No acute pulmonary process.. Nasogastric tube in appropriate location. Dictated by: Cee Velazquez M.D. on 06/14/2024 at 16:58 Approved by: Cee Velazquez M.D. on 06/14/2024 at 16:59
[2024-06-14] MEDS: POTASSIUM CHLORIDE 20 MEQ in DEXTROSE 5%-LACTATED RINGERS 1,000 ML 150 MEQ IV ×2 (16:32→23:43)
[2024-06-14 17:00] VITALS: BP 104/59; PULSE 52; RESP 16; TEMP 36.9; O2SAT 100
--- NOTE | 2024-06-14 18:27 | P.PN_ITS ---
Subjective Subjective Date Patient Seen: 06/14/24 Time Patient Seen: 18:28 Interval history: Through the day the patient received IV magnesium sulfate 2 g, a general surgery consultation was requested Dr. Marli Belle, and the patient over the course of the afternoon became more distended, nauseated, and threw up for 400 cc of bilious emesis. NG tube inserted with intermittent suction and draining effectively. Patient's abdominal symptoms markedly improved and NG tube reasonably well tolerated. Exam Vital Signs (past 8 hours): - 06/14/24 14:30 06/14/24 17:00 Temperature 98.5 F 98.4 F Pulse Rate 75 52 L Respiratory Rate 18 16 Blood Pressure 116/73 104/59 L Pulse Oximetry 100 Oxygen Flow Rate 100 Oxygen Flow Rate 100 Const General: cooperative and comfortable Nutritional Appearance: average body habitus Orientation: alert and oriented x3 HENMT Head: normal to inspection, atraumatic and abrasion Ears: hearing grossly normal bilaterally Face and sinus: face symmetric Eyes General: appearance normal, both eyes and all related structures Conjunctivae: conjunctivae normal Sclera: sclerae normal EOM: EOM intact bilaterally Neck Neck: normal visual inspection Resp Effort & Inspection: normal respiratory effort and able to speak in complete sentences Auscultation: clear to auscultation bilaterally Cardio Rate: regular rate Rhythm: regular rhythm Heart Sounds: S1 normal, S2 normal and no murmurs GI Inspection: normal to inspection, distended (Less so than this a.m.) and incision (Surgical dressings clean and dry) Palpation: soft, no hepatosplenomegaly and tender (Mild, diffuse postsurgical tenderness) Auscultation: hypoactive bowel sounds External Female Exam: other (No significant bleeding noted) Extrem General: no calf tenderness Psych Appearance: grossly normal Mental Status: mental status grossly normal Speech and Movement: speech and movement normal Mood: congruent mood Affect: normal affect Attitude: cooperative Thought Process: normal Thought Content: normal Judgment: judgment good Objective Labs 06/14/24 06:10 06/14/24 06:10 Labs: Laboratory Results - last 24 hr 06/14/24 06/14/24 06:10 08:55 WBC 15.0 H RBC 3.17 L Hgb 10.7 L Hct 30.0 L MCV 94.5 MCH 33.6 MCHC 35.6 RDW 12.6 Plt Count 374 Neut % (Auto) 90.9 H Lymph % (Auto) 4.4 L [place] % (Auto) 4.3 Eos % (Auto) 0.3 L Baso % (Auto) 0.1 Neut # (Auto) 99437 H Lymph # (Auto) 700 L [place] # (Auto) 600 Eos # (Auto) 0 Baso # (Auto) 0 Sodium 132 L Potassium 3.8 Chloride 98 Carbon Dioxide 27 BUN 12 Creatinine 0.57 Estimated GFR > 60 BUN/Creatinine Ratio 21.1 Glucose 99 Lactate 0.9 Calcium 9.4 Magnesium 1.4 L Total Bilirubin 0.9 AST 19 ALT 16 Alkaline Phosphatase 58 Total Protein 6.4 Albumin 3.8 Globulin 2.6 Albumin/Globulin Ratio 1.5 Procalcitonin 0.046 [facility] Medical History (Updated 06/14/24 @ 11:24 by Fam Roca MD) Abdominal trauma Healthy adult Surgical History (Updated 06/13/24 @ 15:54 by Frida Perez MD) S/P laparoscopic supracervical hysterectomy (~05/30/24) S/P laparotomy History of colonoscopy Social History marital status: household members: spouse and children Smoking Status: Never smoker alcohol intake: never Assessment & Plan Assessment and plan (1) Small intestine obstruction: Status: Acute (2) Postoperative anemia: Status: Acute (3) Elevated WBC count: Qualifiers: Leukocytosis type: unspecified Qualified Code(s): D72.829 - Elevated white blood cell count, unspecified Status: Acute (4) Hyponatremia: Status: Acute Plan LABS: cbc, cmp, mg in AM Fluids: D5Rl w/ 20 KCl/l @ 150/hr. NG: Intermittent suction I&O: Q shift Nutrition: Consult for peripheral hyperal Consults: General Surgery (Pending) Pharmacy (Pending) Pain: Toradol IV, hydromorphone PRN Sed/sleep: Ativan IV N&V: Scopolamine patch, Reglan Activity: OOB as tolerated; position changes encouraged Decisions regarding regarding further evaluation treatment will depend on results of surgical consultation, clinical response to current therapeutic interventions, and labs ordered. Staff to contact me directly with any concerns or questions regarding the patient's management overnight. Time-Based Coding :: [TOTAL MINUTES] spent with patient and on the chart (including review of chart, obtaining history, exam, reviewing outside data, placing orders, documenting exam and treatment plan, and counseling patient) on [DATE]. Quality VTE Deep Vein Thrombosis/Pulmonary Embolism Present on Admission: No
--- NOTE | 2024-06-14 19:15 | P.CALLCOV_ITS ---
Call Coverage Note Note Date of Patient Contact: 06/14/24 Time of Patient Contact: 19:15 Narrative of Care Provided: Consult initiated, case reviewed with full consult note to follow. Post SBO following laparoscopic SOUTH and hyst (05/30), rising WBC and abdominal as cites. Plan: NGT Zosyn IV gastrografin challenge if appropriate tomorrow.
[2024-06-14 20:00] VITALS: BP 106/59; PULSE 81; RESP 16; TEMP 37.1; O2SAT 100
[2024-06-14] MEDS: LORazepam 2 MG/ML INJ IV (20:36)
[2024-06-14] MEDS: PIPERACILLIN/TAZO 3.375 GM in SODIUM CHLORIDE 0.9% 100 ML IV (20:36)
[2024-06-15] VITALS: BP 119/71; PULSE 85; RESP 18; TEMP 37; O2SAT 96
[2024-06-15] MEDS: hydrOXYzine HCL 25 MG TABLET 50 MG PO (00:22)
[2024-06-15] MEDS: BENZOCAINE/MENTHOL 1 LOZ PKT 1 EACH PO ×2 (01:33→05:30)
[2024-06-15] MEDS: BACLOFEN 10 MG TABLET PO (01:33)
[2024-06-15] MEDS: HYDROMORPHONE 1 MG INJ IV ×8 (01:33→21:53)
[2024-06-15] MEDS: METOCLOPRAMIDE 10 MG/2 ML INJ IV (03:25)
[2024-06-15] MEDS: PIPERACILLIN/TAZO 3.375 GM in SODIUM CHLORIDE 0.9% 100 ML IV ×3 (04:00→18:33)
[2024-06-15] MEDS: KETOROLAC 30 MG/ML VIAL IV ×2 (05:29→09:08)
[2024-06-15] MEDS: ONDANSETRON 4 MG/2 ML INJ IV ×2 (05:44→21:53)
[2024-06-15] MEDS: LORazepam 2 MG/ML INJ 0.5 MG IV ×2 (05:44→13:03)
[2024-06-15] MEDS: POTASSIUM CHLORIDE 20 MEQ in DEXTROSE 5%-LACTATED RINGERS 1,000 ML 150 MEQ IV (06:11)
[2024-06-15 06:14] LABS: Add Manual Diff / Slide Review NO; Basophils Absolute Auto 0 /uL (0-100); Basophils Percent Auto 0.1 % (0-2); Eosinophils Absolute Auto 200 /uL (0-450); Eosinophils Percent Auto 1.5 % (2-4); Hematocrit 31.3 % (36-46); Hemoglobin 11.1 g/dL (12.0-16.0); Lymphocytes Absolute Auto 900 /uL (1100-4500); Mean Corpuscular HGB Conc 35.5 % (30-36); Mean Corpuscular Hemoglobin 33.5 PG (26-34); Mean Corpuscular Volume 94.4 fL (80-100); Monocytes Absolute Auto 1000 /uL (0-900); Monocytes Percent Auto 8.1 % (3-14); Neutrophils Absolute Auto 10400 /uL (1500-7000); Neutrophils Percent Auto 83.3 % (50-75); Platelet Count 408 X10^3/uL (150-400); Red Blood Cell Count 3.32 X10^6/uL (4.0-5.2); Red Cell Distribution Width 12.3 % (11.6-14.8); White Blood Cell Count 12.5 X10^3/uL (4.5-11.0)
[2024-06-15 06:30] LABS: Alanine Aminotransferase 15 IU/L (<35); Albumin 3.4 g/dL (3.5-5.0); Albumin Globulin Ratio 1.2 (1.0-2.8); Alkaline Phosphatase 55 U/L (38-126); Aspartate Aminotransferase 18 IU/L (14-36); BUN Creatinine Ratio 8.3 (6-22); Bilirubin Total 0.6 mg/dL (0.2-1.3); Blood Urea Nitrogen 5 mg/dL (7-17); Calcium 9.1 mg/dL (8.4-10.2); Carbon Dioxide 27 mmol/L (22-32); Chloride 103 mmol/L (98-107); Estimated Glomerular Filt Rate > 60 mL/min (>60); Globulin 2.8 g/dL (1.7-4.1); Glucose 140 mg/dL (70-100); HEMOLYSIS < 15 (0-50); Magnesium 1.6 mg/dL (1.6-2.3); Potassium 3.7 mmol/L (3.4-5.1); Sodium 134 mmol/L (137-145); Total Protein 6.2 g/dL (6.3-8.2)
[2024-06-15 08:00] VITALS: BP 105/64; PULSE 100; RESP 18; TEMP 36.8; O2SAT 98
[2024-06-15] MEDS: FAMOTIDINE 20 MG/2 ML VIAL IV ×2 (09:07→21:50)
[2024-06-15] MEDS: MAGNESIUM SULFATE 2 GM/50 ML PIGGYBACK IV (10:40)
--- NOTE | 2024-06-15 13:24 | PM.PN.1 ---
Subjective Subjective Date Patient Seen: 06/15/24 Time Patient Seen: 10:00 Interval history: Hospitalization day 3 for postoperative ileus/or obstruction. Patient continues to not feel well. She continues to have nausea and abdominal pain. Her NG tube was clamped earlier today for trial of resolution of her obstruction per General surgery. Exam Vital Signs (past 8 hours): - 06/15/24 08:00 Temperature 98.3 F Pulse Rate 100 H Respiratory Rate 18 Blood Pressure 105/64 Pulse Oximetry 98 Oxygen Flow Rate 0 Oxygen Flow Rate 0 Narrative Exam Narrative: Patient with NG tube in place. Patient is sitting at the side of the bed in discomfort. Continued mild abdominal distention. Incisions are clean, dry, and intact. Objective Labs 06/15/24 05:45 06/15/24 05:45 Labs: Laboratory Results - last 24 hr 06/15/24 05:45 WBC 12.5 H RBC 3.32 L Hgb 11.1 L Hct 31.3 L MCV 94.4 MCH 33.5 MCHC 35.5 RDW 12.3 Plt Count 408 H Neut % (Auto) 83.3 H Lymph % (Auto) 7.0 L [place] % (Auto) 8.1 Eos % (Auto) 1.5 L Baso % (Auto) 0.1 Neut # (Auto) 75802 H Lymph # (Auto) 900 L [place] # (Auto) 1000 H Eos # (Auto) 200 Baso # (Auto) 0 Sodium 134 L Potassium 3.7 Chloride 103 Carbon Dioxide 27 BUN 5 L Creatinine 0.60 Estimated GFR > 60 BUN/Creatinine Ratio 8.3 Glucose 140 H Calcium 9.1 Magnesium 1.6 Total Bilirubin 0.6 AST 18 ALT 15 Alkaline Phosphatase 55 Total Protein 6.2 L Albumin 3.4 L Globulin 2.8 Albumin/Globulin Ratio 1.2 [facility] Medical History (Updated 06/14/24 @ 11:24 by Fam Roca MD) Abdominal trauma Healthy adult Surgical History (Updated 06/13/24 @ 15:54 by Frida Perez MD) S/P laparoscopic supracervical hysterectomy (~05/30/24) S/P laparotomy History of colonoscopy Social History marital status: household members: spouse and children Smoking Status: Never smoker alcohol intake: never Assessment & Plan Assessment and plan (1) Small intestine obstruction: Status: Acute Assessment & Plan narrative: General surgery, Dr. Marli Belle, assistant chief train dispatcher in this case. We will proceed as her expertise decides. If no resolution with NG tube and bowel rest probable exploratory surgery will be performed. Patient will be started on TPN. Time-Based Coding :: [TOTAL MINUTES] spent with patient and on the chart (including review of chart, obtaining history, exam, reviewing outside data, placing orders, documenting exam and treatment plan, and counseling patient) on [DATE]. Quality VTE Deep Vein Thrombosis/Pulmonary Embolism Present on Admission: No
--- NOTE | 2024-06-15 14:00 | DIET.CONS ---
Dietary Consultation Note Admission Date: 06/13/2024 10:09 Assessment: Starting TPN today. Pt sleeping during some of visit. Family reports she stopped eating Thursday. On Day 4 of no intake. Between her surgery and Thursday had been eating but around 2 small meals or 50% or less than usual intake. Limited NFPE d/t pt being sleepy- no significant results in temples, buccal and orbital fat pads and interosseous muscle Ht: 162.56 cm Wt: 50.5 kg BMI: 19.1 UBW: 48.081 kg on 04/18/24 Last BM: 06/12/24 (06/13/24 10:11) MNA: 6 Corby Score: 20 Nutrition Percent Meal Consumed 25% 06/13/24 15:00 Labs: RBC 3.32 X10^6/uL (4.0-5.2) L 06/15/24 05:45 Hgb 11.1 g/dL (12.0-16.0) L 06/15/24 05:45 Hct 31.3 % (36-46) L 06/15/24 05:45 Creatinine 0.60 mg/dL (0.52-1.04) 06/15/24 05:45 Lactate 0.9 mmol/L (0.7-2.1) 06/14/24 08:55 Nutrition Diagnosis: Inadequate oral intake r/t alterations in GI tract aeb no po intakes for 4 days Interventions: 1. Continuous TPN via PICC as follows: Day 1: 21 mL/hr Clinimix 5/20 for first 24 hours. If tolerating can advance to day 2 Day 2: Goal rate 1 L Clinimix 5/20 at 42 mL/hr with 250 mL IVFE 3x/wk. Goal rate plus lipids provides 1095 kcals (73% EER) and 50 g protein (100% protein needs) 2. Monitor Phos, Mg, K+, glucose for first 3 days on TPN. Pharmacy replete per protocol. EER: [id number] (30-35 kcals/kg per BMI) 50 g protein (1 g/kg) Monitoring/Evaluations: f/u tomorrow, monitoring labs and rate Electronically Signed by: Aimee Fernandes 06/15/24 14:00 Clinical Dietitian [address] [address]
--- NOTE | 2024-06-15 14:36 | PM.CN ---
History of Present Illness Consult details Date Patient Seen: 06/15/24 Time Patient Seen: 10:30 Chief complaint: Postop Ileus Reason for consult: SBO, leukocytosis Requesting provider: Fam Roca Narrative: Patient readmitted s/p travis henrietta GTZA 05/30/24. CT scan cw postop ileus initially and RLQ SBO on more recent CT. NGT placed with high output, intolerant of clamp trial 24 hours later. No flatus. Persistent nausea, generalized abdominal pain and distension. Meds Home Medications and Allergies Home Medications Medication Instructions Recorded Confirmed Type hydromorphone 2 mg tablet 2 mg PO Q4H PRN Pain (Scale Score 06/13/24 06/13/24 History 4-6) Allergies Allergy/AdvReac Type Severity Reaction Status Date / Time latex Allergy Mild LOCAL RASH Verified 05/30/24 12:07 Review of Systems Review of Systems ROS: Yes All systems reviewed with the patient and are negative except as otherwise documented Exam Vital Signs (past 8 hours): - 06/15/24 08:00 Temperature 98.3 F Pulse Rate 100 H Respiratory Rate 18 Blood Pressure 105/64 Pulse Oximetry 98 Oxygen Flow Rate 0 Oxygen Flow Rate 0 Narrative Exam Narrative: petite female, NAD. NGT in place. able to sit cross legged in bed. Const General: cooperative and ill appearing Nutritional Appearance: thin Orientation: alert, awake and oriented x3 HENMT Head: normocephalic and atraumatic Ears: hearing grossly normal bilaterally Eyes Sclera: sclerae normal Neck Neck: normal visual inspection and trachea midline Resp Effort & Inspection: normal respiratory effort and able to speak in complete sentences Cardio Rate: tachycardic Rhythm: regular rhythm GI Inspection: distended Palpation: firm (no guarding, no acute abdomen) and ascites Skin General: elasticity normal and warm Lesions: no lesions Rashes: no rashes Neuro General: patient alert, patient awake and patient oriented x3 Extrem General: no clubbing, cyanosis or edema Psych Appearance: well kempt Mental Status: mental status grossly normal Judgment: judgment good Objective Labs 06/15/24 05:45 06/15/24 05:45 Labs: Laboratory Results - last 24 hr 06/15/24 05:45 WBC 12.5 H RBC 3.32 L Hgb 11.1 L Hct 31.3 L MCV 94.4 MCH 33.5 MCHC 35.5 RDW 12.3 Plt Count 408 H Neut % (Auto) 83.3 H Lymph % (Auto) 7.0 L [place] % (Auto) 8.1 Eos % (Auto) 1.5 L Baso % (Auto) 0.1 Neut # (Auto) 95402 H Lymph # (Auto) 900 L [place] # (Auto) 1000 H Eos # (Auto) 200 Baso # (Auto) 0 Sodium 134 L Potassium 3.7 Chloride 103 Carbon Dioxide 27 BUN 5 L Creatinine 0.60 Estimated GFR > 60 BUN/Creatinine Ratio 8.3 Glucose 140 H Calcium 9.1 Magnesium 1.6 Total Bilirubin 0.6 AST 18 ALT 15 Alkaline Phosphatase 55 Total Protein 6.2 L Albumin 3.4 L Globulin 2.8 Albumin/Globulin Ratio 1.2 [facility] Medical History Abdominal trauma Healthy adult Surgical History S/P laparoscopic supracervical hysterectomy (~05/30/24) S/P laparotomy History of colonoscopy Social History marital status: household members: spouse and children Tobacco & Substance Use Smoking Status: Never smoker alcohol intake: never Assessment & Plan Assessment & Plan narrative: Readmitted on 06/12 w N/V c/w post op ileus. Electrolytes have been replaced, poor progression in recovery. CT scan repeated 06/14 with increased abdominal free fluid, still no IAA, and transition point of SB in RLQ. NGT placed last evening with high volume output. Unable to even tolerated NGT clamping trial today. She also has had progressive leukocytosis without etiology (no UA done) that promptly responded to Zosyn IV. Patient understandably frustrated. Plan: Another 24 hrs of NGT decompression and IV antibiotics. Awkward time for reoperation due to healing status and malnutrition. Possibility of ileus due to infection is reasonable still. if no improvement will consider OR tomorrow. Time-Based Coding :: [TOTAL MINUTES] spent with patient and on the chart (including review of chart, obtaining history, exam, reviewing outside data, placing orders, documenting exam and treatment plan, and counseling patient) on [DATE].
[2024-06-15 16:00] VITALS: BP 108/65; PULSE 115; RESP 16; TEMP 38; O2SAT 95
--- NOTE | 2024-06-15 16:16 | DI.RAD.S_ITS ---
PROCEDURE: XR CHEST FOR PICC 1V INDICATIONS: PICC line placement COMPARISON: [facility], CR, XR CHEST 1V, 06/14/2024, 16:19. FINDINGS: PICC was placed by the intravenous therapy team from the left side. Fluoroscopic spot film demonstrates the tip of PICC projecting to the area of distal SVC/cavoatrial junction. Enteric tube with tip and side port projecting over the expected location of the stomach. IMPRESSION: Tip of PICC projects to the area of distal SVC/cavoatrial junction. Dictated by: Juan Perera M.D. on 06/15/2024 at 17:02 Approved by: Juan Perera M.D. on 06/15/2024 at 17:03
[2024-06-15] MEDS: AA 5 %/CALCIUM/LYTES/DEXT 20 % 500 ML with MULTIVITAMIN 10 ML, TRACE ELEMENTS 1 ML, THI... 21.333 ML IV (16:40)
[2024-06-15] MEDS: FAT EMULSIONS 50 GM/250 ML EMULSION IV (16:41)
[2024-06-15] MEDS: DEXTROSE 5%-0.45% NS 1,000 ML 80 ML IV (16:53)
[2024-06-15 20:00] VITALS: BP 105/64; PULSE 113; RESP 20; TEMP 36.9; O2SAT 94
[2024-06-15] MEDS: LORazepam 2 MG/ML INJ IV (22:16)
[2024-06-16] VITALS (16 sets, daily range): BP systolic 97–128; BP diastolic 67–85; PULSE 72–91; RESP 13–25; TEMP 36.2–36.5; O2SAT 96–100; BMI 19.1
[2024-06-16] MEDS: HYDROMORPHONE 1 MG INJ IV ×3 (01:08→10:42)
[2024-06-16] MEDS: LORazepam 2 MG/ML INJ 0.5 MG IV ×3 (01:08→11:22)
[2024-06-16] MEDS: PIPERACILLIN/TAZO 3.375 GM in SODIUM CHLORIDE 0.9% 100 ML IV ×3 (03:31→20:00)
[2024-06-16 06:04] LABS: Add Manual Diff / Slide Review NO; Basophils Absolute Auto 0 /uL (0-100); Basophils Percent Auto 0.5 % (0-2); Eosinophils Absolute Auto 100 /uL (0-450); Eosinophils Percent Auto 1.5 % (2-4); Hematocrit 28.5 % (36-46); Hemoglobin 10.2 g/dL (12.0-16.0); Lymphocytes Absolute Auto 1100 /uL (1100-4500); Lymphocytes Percent Auto 18.2 % (25-40); Mean Corpuscular HGB Conc 35.8 % (30-36); Mean Corpuscular Hemoglobin 34.2 PG (26-34); Mean Corpuscular Volume 95.5 fL (80-100); Monocytes Absolute Auto 900 /uL (0-900); Monocytes Percent Auto 14.8 % (3-14); Neutrophils Absolute Auto 3900 /uL (1500-7000); Platelet Count 300 X10^3/uL (150-400); Red Blood Cell Count 2.99 X10^6/uL (4.0-5.2); Red Cell Distribution Width 12.8 % (11.6-14.8)
[2024-06-16 06:13] LABS: Alanine Aminotransferase 12 IU/L (<35); Albumin 3.5 g/dL (3.5-5.0); Albumin Globulin Ratio 1.3 (1.0-2.8); Alkaline Phosphatase 45 U/L (38-126); Aspartate Aminotransferase 18 IU/L (14-36); BUN Creatinine Ratio 8.6 (6-22); Bilirubin Total 0.4 mg/dL (0.2-1.3); Blood Urea Nitrogen 5 mg/dL (7-17); Calcium 8.9 mg/dL (8.4-10.2); Carbon Dioxide 27 mmol/L (22-32); Chloride 101 mmol/L (98-107); Estimated Glomerular Filt Rate > 60 mL/min (>60); Globulin 2.6 g/dL (1.7-4.1); Glucose 117 mg/dL (70-100); HEMOLYSIS < 15 (0-50); Magnesium 1.9 mg/dL (1.6-2.3); Potassium 3.6 mmol/L (3.4-5.1); Sodium 135 mmol/L (137-145); Total Protein 6.1 g/dL (6.3-8.2)
[2024-06-16] MEDS: ONDANSETRON 4 MG/2 ML INJ IV (06:54)
--- NOTE | 2024-06-16 07:52 | PM.PN.1 ---
Subjective Subjective Date Patient Seen: 06/16/24 Time Patient Seen: 07:53 Interval history: Hospital day #4 small bowel obstruction. Patient slept better last night. Trial of NG clamp going better today, no nausea, no increased pain. Patient is still complaining abdominal distension. No flatus. Exam Vital Signs (past 8 hours): - 06/16/24 05:36 Temperature 97.7 F Pulse Rate 91 H Respiratory Rate 18 Blood Pressure 110/75 Pulse Oximetry 97 Oxygen Flow Rate 0 Oxygen Flow Rate 0 Narrative Exam Narrative: Abdomen is firm, distended, rare bowel tones. Incisions are clean, dry, intact. Extremities without edema and nontender. Objective Labs 06/16/24 04:45 06/16/24 04:45 Labs: Laboratory Results - last 24 hr 06/16/24 04:45 WBC 6.0 D RBC 2.99 L Hgb 10.2 L Hct 28.5 L MCV 95.5 MCH 34.2 H MCHC 35.8 RDW 12.8 Plt Count 300 Neut % (Auto) 65.0 Lymph % (Auto) 18.2 L [place] % (Auto) 14.8 H Eos % (Auto) 1.5 L Baso % (Auto) 0.5 Neut # (Auto) 3900 Lymph # (Auto) 1100 [place] # (Auto) 900 Eos # (Auto) 100 Baso # (Auto) 0 Sodium 135 L Potassium 3.6 Chloride 101 Carbon Dioxide 27 BUN 5 L Creatinine 0.58 Estimated GFR > 60 BUN/Creatinine Ratio 8.6 Glucose 117 H Calcium 8.9 Magnesium 1.9 Total Bilirubin 0.4 AST 18 ALT 12 Alkaline Phosphatase 45 Total Protein 6.1 L Albumin 3.5 Globulin 2.6 Albumin/Globulin Ratio 1.3 [facility] Medical History Abdominal trauma Healthy adult Surgical History S/P laparoscopic supracervical hysterectomy (~05/30/24) S/P laparotomy History of colonoscopy Social History marital status: household members: spouse and children Smoking Status: Never smoker alcohol intake: never Assessment & Plan Assessment and plan (1) Small intestine obstruction: Status: Acute (2) Postoperative anemia: Status: Acute Assessment & Plan narrative: Patient improved but still no flatus. Urine output low so will increase IV fluids. Plan per Dr. Belle Time-Based Coding :: [TOTAL MINUTES] spent with patient and on the chart (including review of chart, obtaining history, exam, reviewing outside data, placing orders, documenting exam and treatment plan, and counseling patient) on [DATE]. Quality VTE Deep Vein Thrombosis/Pulmonary Embolism Present on Admission: No
[2024-06-16] MEDS: FAMOTIDINE 20 MG/2 ML VIAL IV (08:35)
[2024-06-16] MEDS: SODIUM CHLORIDE 0.9% FLUSH 10 ML IV (08:35)
[2024-06-16] MEDS: BENZOCAINE/MENTHOL 1 LOZ PKT 1 EACH PO ×2 (08:36→10:44)
--- NOTE | 2024-06-16 09:20 | DIET.PN1 ---
Addendum entered by Aimee Fernandes 06/16/24 14:49: Phos within normal range. TPN can be advanced to goal of 1 L this evening. F/u tomorrow. Original Note: Dietary Progress Note Assessment: Mg and K+ within normal range. [facility] phos lab be drawn and monitored with Mg, K+ and glucose for first 3 days on TPN d/t pt with no PO intake for 4 days and <75% estimated energy intake between surgery and this past Thursday. Discussed with pharmacist in rounds. If phos found to be within normal range, can advance TPN to goal rate of 1 L of Clinimix at 42 mL/hr. Will follow for phos level. Ht: 162.56 cm Wt: 50.5 kg BMI: 19.1 Last BM: 06/12/24 (06/13/24 10:11) MNA: 6 Corby Score: 21 Labs: RBC 2.99 X10^6/uL (4.0-5.2) L 06/16/24 04:45 Hgb 10.2 g/dL (12.0-16.0) L 06/16/24 04:45 Hct 28.5 % (36-46) L 06/16/24 04:45 Creatinine 0.58 mg/dL (0.52-1.04) 06/16/24 04:45 Lactate 0.9 mmol/L (0.7-2.1) 06/14/24 08:55 Electronically Signed by: Aimee Fernandes 06/16/24 09:20 Clinical Dietitian [address] [address]
[2024-06-16 10:59] LABS: Phosphorous 3.5 mg/dL (2.5-4.5)
[2024-06-16] MEDS: LORazepam 2 MG/ML INJ 1 MG IV (12:20)
--- NOTE | 2024-06-16 13:30 | PM.PREOP ---
Pre-operative Note Interval Note History & Physical reviewed/Exam performed by Physician: Yes Changes to H&P: Yes H&P completed within 30 days and has changed as indicated here:: Persistent high grade SBO
[2024-06-16] MEDS: LACTATED RINGERS 1,000 ML 42 ML IV (13:45)
--- NOTE | 2024-06-16 13:56 | SUR.OPER ---
Supine on padded OR bed, head on pillow, arms secured on padded arm boards at <90 degrees abduction, legs uncrossed, safety belt at thigh, tape over blanket over lower legs.
--- NOTE | 2024-06-16 15:40 | CM.DPNOTE ---
DCP Note [employer] reviewed EMR. Per chart review, if no improvement plan for OR today. Pt continues to have output from NG tube.? [facility] [employer] [employer] [facility] attempted to meet with pt in room, down in OR during assessment. No barriers identified at this time to safe dc home with family assistance and close OP f/u. CM team will plan to follow clinical course closely in case any DC needs or concerns arise. FELICIA oGre
--- NOTE | 2024-06-16 15:50 | PM.OP.1 ---
Operative Date/Time/Diagnoses Date of procedure: 06/16/24 Time of procedure: 15:50 Pre-op diagnosis: Bowel obstruction Post-op diagnosis: same Procedure & Clinicians Procedure: Exploratory laparotomy with lysis of adhesion Same procedure as scheduled: Yes Indications: High-grade small-bowel obstruction Surgeon: Marli Belle Sales And Service Change Leader: Saeed Soriano Anesthesia Type: General and Local Operative Notes Findings: A single adhesion band in the right lateral abdomen that is chronic and acute with associated ischemic omentum Closure Type: primary Specimen(s): none sent Estimated Blood Loss (mL): 10 Blood products transfused: none Procedure in detail: Preop diagnosis: High-grade small bowel obstruction Postop diagnosis: Same Operative procedure: Exploratory laparotomy with lysis of adhesions Surgeon: Ora Belle MD pharmacy affairs assistant YARELY Tavares Findings: Single adhesive band in the right lateral abdomen to the abdominal wall. Small bowel shows evidence of chronic on acute obstruction. Associated with small piece of omentum that had infarcted and necrosed. Procedure: Patient placed in a supine position. Prepped and draped in sterile fashion to expose her abdomen, following a abdominal wall tap procedure via anesthesia. I began with a small midline incision through her old scar, quickly mobilized the abdominal wall to locate right away an adhesion in the right lateral abdomen with associated necrotic omentum. Once I had better exposure of the adhesion it clearly is our source. The small bowel decompressed at the site. And there was an component of chronicity and scarring. Lysis of adhesion was carried out. Abdomen was closed with a running looped 0 PDS. Skin was closed with running 4-0 Vicryl. Sterile dressings and Steri-Strips were placed patient was awakened, extubated, taken to recovery room in stable condition. Needle, instrument, sponge counts were correct. Blood loss: 10 mL Specimen: None Complications: none Post-operative Condition: stable Disposition: PACU
[2024-06-16] MEDS: HYDROMORPHONE 1 MG INJ 0.5 MG IV ×2 (16:04→16:13)
[2024-06-16] MEDS: fentaNYL 100 MCG/2 ML INJ IV ×2 (16:20→16:26)
[2024-06-16] MEDS: hydrOXYzine 50 MG/ML INJ 25 MG IM (16:21)
[2024-06-16] MEDS: OXYCODONE IR 5 MG TABLET PO (16:36)
[2024-06-16] MEDS: HYDROMORPHONE 2 MG TABLET PO (18:10)
[2024-06-16] MEDS: GABAPENTIN 400 MG CAPSULE PO (21:40)
[2024-06-16] MEDS: CELECOXIB 200 MG CAPSULE PO (21:41)
[2024-06-17] VITALS: BP 110/86; PULSE 86; RESP 18; TEMP 37; O2SAT 98
[2024-06-17] MEDS: LORazepam 2 MG/ML INJ IV ×2 (00:44→23:39)
[2024-06-17] MEDS: ACETAMINOPHEN 325 MG TABLET 650 MG PO ×4 (00:45→21:49)
[2024-06-17] MEDS: PIPERACILLIN/TAZO 3.375 GM in SODIUM CHLORIDE 0.9% 100 ML IV (03:50)
[2024-06-17] MEDS: OXYCODONE IR 10 MG TABLET PO (05:46)
[2024-06-17 06:00] LABS: Add Manual Diff / Slide Review NO; Basophils Absolute Auto 0 /uL (0-100); Basophils Percent Auto 0.1 % (0-2); Eosinophils Absolute Auto 0 /uL (0-450); Hematocrit 28.7 % (36-46); Hemoglobin 10.2 g/dL (12.0-16.0); Lymphocytes Absolute Auto 700 /uL (1100-4500); Lymphocytes Percent Auto 12.1 % (25-40); Mean Corpuscular HGB Conc 35.4 % (30-36); Mean Corpuscular Hemoglobin 33.4 PG (26-34); Mean Corpuscular Volume 94.5 fL (80-100); Monocytes Absolute Auto 700 /uL (0-900); Monocytes Percent Auto 11.5 % (3-14); Neutrophils Absolute Auto 4500 /uL (1500-7000); Neutrophils Percent Auto 76.3 % (50-75); Platelet Count 305 X10^3/uL (150-400); Red Blood Cell Count 3.04 X10^6/uL (4.0-5.2); Red Cell Distribution Width 12.5 % (11.6-14.8)
[2024-06-17 06:09] LABS: Phosphorous 4.1 mg/dL (2.5-4.5)
[2024-06-17] MEDS: ONDANSETRON 4 MG/2 ML INJ IV (07:47)
[2024-06-17 08:00] VITALS: BP 111/73; PULSE 82; RESP 16; TEMP 36.4; O2SAT 97
[2024-06-17] MEDS: HYDROMORPHONE 2 MG TABLET PO ×2 (08:11→18:19)
[2024-06-17] MEDS: PANTOPRAZOLE DR 20 MG TABLET PO (08:12)
[2024-06-17] MEDS: CELECOXIB 200 MG CAPSULE PO ×2 (08:13→21:25)
--- NOTE | 2024-06-17 09:24 | PM.PN.1 ---
Subjective Subjective Date Patient Seen: 06/17/24 Time Patient Seen: 09:25 Interval history: Patient is postoperative exploratory laparotomy for presumed small bowel obstruction. Patient earlier this a.m. was complaining of significant pain after block or off but now she has better pain control. She still have some mild nausea. NGT is out. Exam Vital Signs (past 8 hours): - 06/17/24 08:00 Temperature 97.6 F Pulse Rate 82 Respiratory Rate 16 Blood Pressure 111/73 Pulse Oximetry 97 Oxygen Flow Rate 0 Oxygen Delivery Method Room Air Oxygen Flow Rate 0 Narrative Exam Narrative: Dressing is clean, dry, intact. Still mild distention and pain with palpation but no rebound. Extremities without edema and nontender. Good urine output. Objective Labs 06/17/24 05:24 06/16/24 04:45 Labs: Laboratory Results - last 24 hr 06/16/24 06/17/24 04:45 05:24 WBC 6.0 RBC 3.04 L Hgb 10.2 L Hct 28.7 L MCV 94.5 MCH 33.4 MCHC 35.4 RDW 12.5 Plt Count 305 Neut % (Auto) 76.3 H Lymph % (Auto) 12.1 L [place] % (Auto) 11.5 Eos % (Auto) 0.0 L Baso % (Auto) 0.1 Neut # (Auto) 4500 Lymph # (Auto) 700 L [place] # (Auto) 700 Eos # (Auto) 0 Baso # (Auto) 0 Phosphorus 3.5 4.1 PFSH Medical History Abdominal trauma Healthy adult Surgical History (Updated 06/17/24 @ 09:29 by Frida Perez MD) S/P laparoscopic supracervical hysterectomy (~05/30/24) S/P laparotomy History of colonoscopy Social History marital status: household members: spouse and children Smoking Status: Never smoker alcohol intake: never Assessment & Plan Assessment and plan (1) Small intestine obstruction: Status: Acute (2) Postoperative anemia: Status: Acute (3) S/P laparotomy: Status: Acute Assessment & Plan narrative: Clear liquid diet. Ambulate. Await return of bowel function. Time-Based Coding :: [TOTAL MINUTES] spent with patient and on the chart (including review of chart, obtaining history, exam, reviewing outside data, placing orders, documenting exam and treatment plan, and counseling patient) on [DATE]. Quality VTE Deep Vein Thrombosis/Pulmonary Embolism Present on Admission: No
[2024-06-17] MEDS: ALPRAZolam 0.25 MG TABLET PO (09:43)
[2024-06-17] MEDS: OXYCODONE IR 5 MG TABLET PO ×3 (10:40→21:49)
--- NOTE | 2024-06-17 11:23 | DIET.CONS ---
Dietary Consultation Note Admission Date: 06/13/2024 10:09 Assessment: Per RN this morning, TPN is running but will not be reordered for tonight. Pt is tolerating clears this morning. Will follow for diet tolerance and advancement. Ht: 162.56 cm Wt: 50.5 kg BMI: 19.1 Last BM: 06/12/24 (06/16/24 13:40) MNA: 6 Corby Score: 21 Diet: 06/17/24 Lunch Clear Liquid Diet Diet Modifications: May Advance Diet as Tolerated: Yes Labs: RBC 3.04 X10^6/uL (4.0-5.2) L 06/17/24 05:24 Hgb 10.2 g/dL (12.0-16.0) L 06/17/24 05:24 Hct 28.7 % (36-46) L 06/17/24 05:24 Creatinine 0.58 mg/dL (0.52-1.04) 06/16/24 04:45 Lactate 0.9 mmol/L (0.7-2.1) 06/14/24 08:55 Electronically Signed by: Aimee Fernandes 06/17/24 11:23 Clinical Dietitian [address] [address]
[2024-06-17] MEDS: polyethylene glycoL 3350 17 GM POWD.PACK PO (13:42)
--- NOTE | 2024-06-17 14:45 | P.PN_ITS ---
Subjective Subjective Date Patient Seen: 06/17/24 Time Patient Seen: 14:45 Exam Vital Signs (past 8 hours): - 06/17/24 08:00 Temperature 97.6 F Pulse Rate 82 Respiratory Rate 16 Blood Pressure 111/73 Pulse Oximetry 97 Oxygen Flow Rate 0 Oxygen Delivery Method Room Air Oxygen Flow Rate 0 Narrative Exam Narrative: abd less distended. no return of bowel function Const General: anxious Nutritional Appearance: average body habitus Orientation: oriented x3 Objective Labs 06/17/24 05:24 06/16/24 04:45 Labs: Laboratory Results - last 24 hr 06/17/24 05:24 WBC 6.0 RBC 3.04 L Hgb 10.2 L Hct 28.7 L MCV 94.5 MCH 33.4 MCHC 35.4 RDW 12.5 Plt Count 305 Neut % (Auto) 76.3 H Lymph % (Auto) 12.1 L [place] % (Auto) 11.5 Eos % (Auto) 0.0 L Baso % (Auto) 0.1 Neut # (Auto) 4500 Lymph # (Auto) 700 L [place] # (Auto) 700 Eos # (Auto) 0 Baso # (Auto) 0 Phosphorus 4.1 PFSH Medical History Abdominal trauma Healthy adult Surgical History (Updated 06/17/24 @ 09:29 by Frida Perez MD) S/P laparoscopic supracervical hysterectomy (~05/30/24) S/P laparotomy History of colonoscopy Social History marital status: household members: spouse and children Smoking Status: Never smoker alcohol intake: never Assessment & Plan Post-op Postoperative Procedures: Procedures Operation Date: 06/16/24 18:00 Actual Procedure Side Surgeon p Exploratory Laparotomy, LYSIS OF ADHESIONS Marli Belle MD Postoperative day: 1 Postoperative status: marginal pain control Postoperative status narrative: No flatus and Nauseated initially. Normal WBC Postoperative plan: ambulate Postoperative plan narrative: clear liquid diet, stop antibiotics Quality VTE Deep Vein Thrombosis/Pulmonary Embolism Present on Admission: No
[2024-06-17 16:00] VITALS: BP 111/73; PULSE 82; TEMP 36.4; O2SAT 98
--- NOTE | 2024-06-17 16:00 | CM.DPNOTE ---
DCP Note [employer] MANA[employer] reviewed EMR. Per chart, pt bowel functions have no returned yet. Encouraging movement, diet advance as tolerated, and stopping iv abx. per chart, TPN will not be ordered for tonight. tolerating clears. No barriers identified at this time to safe dc home with family assistance and close OP f/u. CM team will plan to follow clinical course closely in case any DC needs or concerns arise. FELICIA Gore
--- NOTE | 2024-06-17 16:48 | P.PN_ITS ---
Subjective Subjective Date Patient Seen: 06/17/24 Time Patient Seen: 16:48 Interval history: Postoperative day 1 laparotomy for small-bowel obstruction. Patient still has not passed gas. She is tolerating oral fluids at this time. Still some mild nausea. Pain is present but but tolerable. She was able to urinate after removal of Cutler catheter. Exam Vital Signs (past 8 hours): Oxygen Delivery Method Room Air Oxygen Flow Rate 0 Objective Labs 06/17/24 05:24 06/16/24 04:45 Labs: Laboratory Results - last 24 hr 06/17/24 05:24 WBC 6.0 RBC 3.04 L Hgb 10.2 L Hct 28.7 L MCV 94.5 MCH 33.4 MCHC 35.4 RDW 12.5 Plt Count 305 Neut % (Auto) 76.3 H Lymph % (Auto) 12.1 L [place] % (Auto) 11.5 Eos % (Auto) 0.0 L Baso % (Auto) 0.1 Neut # (Auto) 4500 Lymph # (Auto) 700 L [place] # (Auto) 700 Eos # (Auto) 0 Baso # (Auto) 0 Phosphorus 4.1 [facility] Medical History Abdominal trauma Healthy adult Surgical History (Updated 06/17/24 @ 09:29 by Frida Perez MD) S/P laparoscopic supracervical hysterectomy (~05/30/24) S/P laparotomy History of colonoscopy Social History marital status: household members: spouse and children Smoking Status: Never smoker alcohol intake: never Assessment & Plan Assessment and plan (1) S/P laparotomy: Status: Acute (2) Small intestine obstruction: Status: Acute (3) Postoperative anemia: Status: Acute Assessment & Plan narrative: Discussed IV iron therapy. Patient encouraged to ambulate. Continue clear liquids until there is more bowel function. Questions from the patient and family members answered. Time-Based Coding :: [TOTAL MINUTES] spent with patient and on the chart (including review of chart, obtaining history, exam, reviewing outside data, placing orders, documenting exam and treatment plan, and counseling patient) on [DATE]. Quality VTE Deep Vein Thrombosis/Pulmonary Embolism Present on Admission: No
[2024-06-17 20:55] VITALS: BP 105/71; PULSE 74; RESP 16; TEMP 36.8; O2SAT 97
[2024-06-17] MEDS: HEPARIN 5,000 UNIT/ML VIAL 5000 UNIT SUBCUT (21:25)
[2024-06-17] MEDS: GABAPENTIN 400 MG CAPSULE PO (21:25)
[2024-06-18 02:35] VITALS: BP 99/62; PULSE 67; RESP 19; TEMP 36.4; O2SAT 98
[2024-06-18] MEDS: ACETAMINOPHEN 325 MG TABLET 650 MG PO ×2 (06:10→13:49)
[2024-06-18] MEDS: PANTOPRAZOLE DR 20 MG TABLET PO (06:10)
[2024-06-18] MEDS: OXYCODONE IR 5 MG TABLET PO ×3 (06:11→13:46)
[2024-06-18 06:47] LABS: Alanine Aminotransferase 45 IU/L (<35); Albumin 3.1 g/dL (3.5-5.0); Albumin Globulin Ratio 1.3 (1.0-2.8); Alkaline Phosphatase 55 U/L (38-126); Aspartate Aminotransferase 41 IU/L (14-36); BUN Creatinine Ratio 8.3 (6-22); Bilirubin Total 0.3 mg/dL (0.2-1.3); Blood Urea Nitrogen 4 mg/dL (7-17); Calcium 8.6 mg/dL (8.4-10.2); Carbon Dioxide 27 mmol/L (22-32); Chloride 106 mmol/L (98-107); Estimated Glomerular Filt Rate > 60 mL/min (>60); Globulin 2.4 g/dL (1.7-4.1); Glucose 89 mg/dL (70-100); HEMOLYSIS < 15 (0-50); Potassium 3.4 mmol/L (3.4-5.1); Sodium 137 mmol/L (137-145); Total Protein 5.5 g/dL (6.3-8.2)
[2024-06-18 08:00] VITALS: BP 92/60; PULSE 73; RESP 18; TEMP 36.4; O2SAT 98
[2024-06-18] MEDS: CELECOXIB 200 MG CAPSULE PO (09:16)
[2024-06-18] MEDS: polyethylene glycoL 3350 17 GM POWD.PACK PO (09:16)
[2024-06-18] MEDS: HEPARIN 5,000 UNIT/ML VIAL 5000 UNIT SUBCUT (09:17)
--- NOTE | 2024-06-18 09:33 | PM.PNPO.1 ---
Subjective Subjective Date Patient Seen: 06/18/24 Time Patient Seen: 09:33 Exam Vital Signs (past 8 hours): - 06/18/24 02:35 06/18/24 08:00 Temperature 97.6 F 97.6 F Pulse Rate 67 73 Respiratory Rate 19 18 Blood Pressure 99/62 92/60 Pulse Oximetry 98 98 Oxygen Flow Rate 0 0 Oxygen Delivery Method Room Air Oxygen Flow Rate 0 Narrative Exam Narrative: She feels MUCH better, passed gas x 2, is eating breakfast now, can be discharged AFTER her first BM. Objective Labs 06/17/24 05:24 06/18/24 05:35 Labs: Laboratory Results - last 24 hr 06/18/24 05:35 Sodium 137 Potassium 3.4 Chloride 106 Carbon Dioxide 27 BUN 4 L Creatinine 0.48 L Estimated GFR > 60 BUN/Creatinine Ratio 8.3 Glucose 89 Calcium 8.6 Total Bilirubin 0.3 AST 41 H ALT 45 H Alkaline Phosphatase 55 Total Protein 5.5 L Albumin 3.1 L Globulin 2.4 Albumin/Globulin Ratio 1.3 PFSH Medical History Abdominal trauma Healthy adult Surgical History (Updated 06/17/24 @ 09:29 by Frida Perez MD) S/P laparoscopic supracervical hysterectomy (~05/30/24) S/P laparotomy History of colonoscopy Social History marital status: household members: spouse and children Smoking Status: Never smoker alcohol intake: never Assessment & Plan Post-op Postoperative Procedures: Procedures Operation Date: 06/16/24 18:00 Actual Procedure Side Surgeon p Exploratory Laparotomy, LYSIS OF ADHESIONS Marli Belle MD Postoperative status narrative: She feels MUCH better, passed gas x 2, is eating breakfast now, can be discharged AFTER her first BM. Quality VTE Deep Vein Thrombosis/Pulmonary Embolism Present on Admission: No
--- NOTE | 2024-06-18 10:14 | PM.PN.1 ---
Subjective Subjective Date Patient Seen: 06/18/24 Time Patient Seen: 10:14 Exam Vital Signs (past 8 hours): - 06/18/24 02:35 06/18/24 08:00 Temperature 97.6 F 97.6 F Pulse Rate 67 73 Respiratory Rate 19 18 Blood Pressure 99/62 92/60 Pulse Oximetry 98 98 Oxygen Flow Rate 0 0 Oxygen Delivery Method Room Air Oxygen Flow Rate 0 Const General: cooperative and comfortable Nutritional Appearance: average body habitus Orientation: alert and oriented x3 HENMT Head: normal to inspection, atraumatic and abrasion Ears: hearing grossly normal bilaterally Face and sinus: face symmetric Eyes General: appearance normal, both eyes and all related structures Conjunctivae: conjunctivae normal Sclera: sclerae normal EOM: EOM intact bilaterally Neck Neck: normal visual inspection Resp Effort & Inspection: normal respiratory effort and able to speak in complete sentences Auscultation: clear to auscultation bilaterally Cardio Rate: regular rate Rhythm: regular rhythm Heart Sounds: S1 normal, S2 normal and no murmurs GI Inspection: normal to inspection, distended (Slightly distended) and incision (Surgical dressings clean and dry) Palpation: soft, no hepatosplenomegaly and tender (Mild, diffuse postsurgical tenderness) Auscultation: normal bowel sounds External Female Exam: other (No significant bleeding noted) Extrem General: no calf tenderness Psych Appearance: grossly normal Mental Status: mental status grossly normal Speech and Movement: speech and movement normal Mood: congruent mood Affect: normal affect Attitude: cooperative Thought Process: normal Thought Content: normal Judgment: judgment good Objective Labs 06/17/24 05:24 06/18/24 05:35 Labs: Laboratory Results - last 24 hr 06/18/24 05:35 Sodium 137 Potassium 3.4 Chloride 106 Carbon Dioxide 27 BUN 4 L Creatinine 0.48 L Estimated GFR > 60 BUN/Creatinine Ratio 8.3 Glucose 89 Calcium 8.6 Total Bilirubin 0.3 AST 41 H ALT 45 H Alkaline Phosphatase 55 Total Protein 5.5 L Albumin 3.1 L Globulin 2.4 Albumin/Globulin Ratio 1.3 [facility] Medical History (Updated 06/18/24 @ 10:16 by Fam Roca MD) Abdominal trauma Healthy adult Surgical History (Updated 06/17/24 @ 09:29 by Frida Perez MD) S/P laparoscopic supracervical hysterectomy (~05/30/24) S/P laparotomy History of colonoscopy Social History marital status: household members: spouse and children Smoking Status: Never smoker alcohol intake: never Assessment & Plan Assessment and plan (1) S/P laparotomy: Status: Acute (2) Small intestine obstruction: Status: Resolved (3) Postoperative anemia: Status: Acute Plan Advance diet and increase ambulation DC lines Possible discharge later today Time-Based Coding :: [TOTAL MINUTES] spent with patient and on the chart (including review of chart, obtaining history, exam, reviewing outside data, placing orders, documenting exam and treatment plan, and counseling patient) on [DATE]. Quality VTE Deep Vein Thrombosis/Pulmonary Embolism Present on Admission: No
--- NOTE | 2024-06-18 12:08 | PM.PNPO.1 ---
Subjective Subjective Date Patient Seen: 06/18/24 Time Patient Seen: 12:08 Interval history: S/p Xlap w SOUTH. Making good progress. Passing gas, no nausea Exam Vital Signs (past 8 hours): - 06/18/24 08:00 Temperature 97.6 F Pulse Rate 73 Respiratory Rate 18 Blood Pressure 92/60 Pulse Oximetry 98 Oxygen Flow Rate 0 Oxygen Delivery Method Room Air Oxygen Flow Rate 0 Narrative Exam Narrative: soft and flat Const General: comfortable Objective Labs 06/17/24 05:24 06/18/24 05:35 Labs: Laboratory Results - last 24 hr 06/18/24 05:35 Sodium 137 Potassium 3.4 Chloride 106 Carbon Dioxide 27 BUN 4 L Creatinine 0.48 L Estimated GFR > 60 BUN/Creatinine Ratio 8.3 Glucose 89 Calcium 8.6 Total Bilirubin 0.3 AST 41 H ALT 45 H Alkaline Phosphatase 55 Total Protein 5.5 L Albumin 3.1 L Globulin 2.4 Albumin/Globulin Ratio 1.3 PFSH Medical History (Updated 06/18/24 @ 10:16 by Fam Roca MD) Abdominal trauma Healthy adult Surgical History (Updated 06/17/24 @ 09:29 by Frida Perez MD) S/P laparoscopic supracervical hysterectomy (~05/30/24) S/P laparotomy History of colonoscopy Social History marital status: household members: spouse and children Smoking Status: Never smoker alcohol intake: never Assessment & Plan Post-op Postoperative Procedures: Procedures Operation Date: 06/16/24 18:00 Actual Procedure Side Surgeon p Exploratory Laparotomy, LYSIS OF ADHESIONS Marli Belle MD Postoperative status: doing well Postoperative status narrative: no complications Postoperative plan: routine post-op care and advance diet Quality VTE Deep Vein Thrombosis/Pulmonary Embolism Present on Admission: No
[2024-06-18] MEDS: POTASSIUM CHLORIDE 20 MEQ TAB 40 MEQ PO (13:06)
--- NOTE | 2024-06-18 13:42 | CM.DPNOTE ---
Addendum entered by FELICIA Gore 06/18/24 14:56: per chart, pt cleared to dc home with family today. SL Original Note: DCP Note BUSINESS OFFICE ASSISTANT reviewed EMR. Per surgeon note, continue to advance diet. anticipate dc home when able to tolerate general diet. No further CM needs identified from chart review at this time. No barriers identified at this time to safe dc home with family assistance and close OP f/u. CM team will plan to follow clinical course closely in case any DC needs or concerns arise. FELICIA Gore
--- NOTE | 2024-06-18 14:37 | P.DS_ITS ---
History of Present Illness History of Present Illness Date Patient Seen: 06/18/24 Time Patient Seen: 14:38 Chief complaint: Postop Ileus Narrative: Jerica Bianchi is a 38 year old female admitted 06/13/24 for treatment for postoperative ileus following laparoscopic supracervical hysterectomy with lysis of adhesions performed 05/30/2024. Denies flatus on admission but did have a bowel movement in the a.m. on 06/12/2024. Patient states minimal flatus after surgery but a lot burping. In the 36-48 hours prior to admission, the patient has had no flatus, as well as increasing nausea and vomiting, abdominal pain, and abdominal bloating. Abdominal pelvic CT in the emergency department at [facility] shows postoperative ileus and she is admitted now for pain management, fluids, and further evaluation/treatment is indicated. Discharge Providers Provider Date of admission: 06/13/24 10:09 Discharge Date: 06/18/24 Primary care physician: Jorge Andrade MD Consults: 06/14/24 11:14 Consult to General Surgery Routine Comment: Consulting Provider: Marli Belle Reason for consultation: Postop SBO Has provider been notified: Yes Discharge provider: Fam Roca MD Summary Hospital Course Discharge Diagnosis: Postoperative small bowel obstruction following laparoscopic supracervical hysterectomy with lysis of adhesions on 05/30/2024 Postoperative anemia due to blood loss Status post exploratory laparotomy with lysis of adhesions Hospital Course: Jerica was admitted on the morning of 06/13/2024 after evaluation in the [facility] ED showed significant postoperative ileus associated with nausea, vomiting, and abdominal distention. Patient was placed at bowel rest and rehydrated. Appropriate pain management initiated. A repeat abdominal pelvic CT with contrast on 06/14 2024 however showed changes more consistent with small-bowel obstruction and a General Surgery consult was initiated. Patient required placement of a nasogastric tube but failed to improve with persistent nausea and vomiting each time a trial of NG clamping was performed. Accordingly the patient was taken to surgery for exploratory laparotomy on 06/16/2024 at which time obstruction of the terminal ileum was noted due to pre-existing intra-abdominal adhesions. The adhesions were lysed in full details of the procedure well summarized on the operative note of Dr. Marli Belle from that date. Following lysis of adhesions with exploratory laparotomy the patient's condition improved dramatically over the ensuing 48 hours to the point where she was able to be discharged to home on 06/18/2024. Patient is ambulating independently, tolerating a regular diet, has had return of both bowel and bladder function, and her pain is well controlled with oral pain medications. She will be discharged at this time to home in an afebrile normotensive condition after counseling regarding precautionary symptoms, limitations of activity, medications, and plans for follow-up which will be in 1 week. Medications at discharge will include resumption of preadmission medications, oxycodone 5 mg every 4-6 hours as needed for pain, ibuprofen 600 mg p.o. q.6 hours as needed for pain, Cipro 500 mg p.o. b.i.d. x5 days for UTI prophylaxis following catheterization, Zofran 8 mg p.o. q.6 to 8 hours as needed for nausea and vomiting, Xanax 0.25 mg every 6 hours as needed for anxiety, and Ambien 5 mg HS as needed for sleep. In addition the patient will take a daily iron supplement along with vitamin-C for the next 30 days due to postoperative anemia due to blood loss. Status at Discharge Cognitive/behavioral status at discharge: oriented Functional status at discharge: independent ambulation Overall status at discharge: patient is progressing back to baseline Time Spent with Patient Time spent: Less than 30 minutes Exam Vital Signs (past 8 hours): - 06/18/24 08:00 Temperature 97.6 F Pulse Rate 73 Respiratory Rate 18 Blood Pressure 92/60 Pulse Oximetry 98 Oxygen Flow Rate 0 Oxygen Delivery Method Room Air Oxygen Flow Rate 0 Const General: cooperative and comfortable Nutritional Appearance: average body habitus Orientation: alert and oriented x3 HENMT Head: normal to inspection, atraumatic and abrasion Ears: hearing grossly normal bilaterally Face and sinus: face symmetric Eyes General: appearance normal, both eyes and all related structures Conjunctivae: conjunctivae normal Sclera: sclerae normal EOM: EOM intact bilaterally Neck Neck: normal visual inspection Resp Effort & Inspection: normal respiratory effort and able to speak in complete sentences Auscultation: clear to auscultation bilaterally Cardio Rate: regular rate Rhythm: regular rhythm Heart Sounds: S1 normal, S2 normal and no murmurs GI Inspection: normal to inspection and incision (Surgical dressings clean and dry) Palpation: soft, no hepatosplenomegaly and tender (Mild, diffuse postsurgical tenderness) Auscultation: normal bowel sounds External Female Exam: other (No significant bleeding noted) Extrem General: no calf tenderness Psych Appearance: grossly normal Mental Status: mental status grossly normal Speech and Movement: speech and movement normal Mood: congruent mood Affect: normal affect Attitude: cooperative Thought Process: normal Thought Content: normal Judgment: judgment good Objective Labs 06/17/24 05:24 06/18/24 05:35 Labs: Laboratory Results - last 24 hr 06/18/24 05:35 Sodium 137 Potassium 3.4 Chloride 106 Carbon Dioxide 27 BUN 4 L Creatinine 0.48 L Estimated GFR > 60 BUN/Creatinine Ratio 8.3 Glucose 89 Calcium 8.6 Total Bilirubin 0.3 AST 41 H ALT 45 H Alkaline Phosphatase 55 Total Protein 5.5 L Albumin 3.1 L Globulin 2.4 Albumin/Globulin Ratio 1.3 PFS Medical History (Updated 06/18/24 @ 10:16 by Fam Roca MD) Abdominal trauma Healthy adult Surgical History (Updated 06/17/24 @ 09:29 by Frida Perez MD) S/P laparoscopic supracervical hysterectomy (~05/30/24) S/P laparotomy History of colonoscopy Social History marital status: household members: spouse and children Smoking Status: Never smoker alcohol intake: never Discharge Assessment & Plan Assessment and Plan Assessment: Postoperative small bowel obstruction following laparoscopic supracervical hysterectomy with lysis of adhesions on 05/30/2024 Postoperative anemia due to blood loss Status post exploratory laparotomy with lysis of adhesions Plan of Treatment: Routine postoperative care with follow-up planned for one-week or as needed. Discharge Plan Discharge Plan Patient Disposition: Home Provider Discharge Comment: Please review the written instructions you received when you were discharged from the hospital. Your follow-up appointment for staple removal will be scheduled about 4 5 days from now. In the meanwhile, please contact me with any questions, concerns, or issues you may have either through the office phone at [phone], via the patient portal, or on my cell phone at [phone]. Discharge orders & Medications Prescriptions: New hydromorphone 4 mg tablet 4 mg PO Q4-6H PRN (Reason: pain) Qty: 12 0RF ibuprofen 600 mg tablet 600 mg PO Q6H PRN (Reason: fever or pain) Qty: 30 2RF ciprofloxacin HCl [Cipro] 500 mg tablet 500 mg PO BID 5 Days Qty: 10 0RF oxycodone 5 mg tablet 5 mg PO Q4H PRN (Reason: pain) Qty: 20 0RF alprazolam [Xanax] 0.25 mg tablet 0.25 mg PO TID PRN (Reason: anxiety) Qty: 10 0RF zolpidem [Ambien] 5 mg tablet 5 mg PO BEDTIME PRN (Reason: insomnia) Qty: 10 0RF Discontinued hydromorphone 2 mg tablet 2 mg PO Q4H PRN (Reason: Pain (Scale Score 4-6)) Patient Comments: post hysterectomy Follow up/Referrals: Jorge Andrade MD [Primary Care Provider] - Discharge Health Status Multidrug resistant organism: No MDRO Diet/Activity/Treatments Diet: Diet as Tolerated Activity: As tolerated Other treatments: [id number] Tylenol may be used for additional pain relief. [id number] stool softeners and/or MiraLax may be used as needed Skin/Wound/Dressing Care Report to your healthcare provider any signs of infection, such as:: chills, fever, increased pain, unusual drainage and unusual redness Dressing: Dressing will be removed at the time of your postop visit. Visit Report/Discharge Packet Instructions: DI for Exploratory Laparotomy, DI for Prescription Opioid Use, [facility]: Wound Care Discharge Data Primary Care Provider: Jorge Andrade Quality VTE Deep Vein Thrombosis/Pulmonary Embolism Present on Admission: No
--- NOTE | 2024-06-18 14:55 | PC.NURSE ---
This OB RN at the patients bedside @1430 to change her dressing. Tfla dressing removed, incision intact, steri strips over sutures, normal amount of drainage noted. Aquacel applied in a clean fashion. Pt tolerated well. Discussed s/s of infection, dressing drainage and showering with aquacel. pt verbalized understanding
== END 2024-06-18 15:20 | disposition home or self-care (01) | DRG 335 ==
PROVIDERS: Obstetrics & Gynecology; Surgery; Admitting Provider Specialist; PCP Family Medicine; Referring Provider Specialist; Visit Provider Specialist
PROC: 0DN80ZZ Release Small Intestine, Open Approach (ICD-10-PCS; CPT 49000; principal; 2024-06-16 18:00)
DX: K56.50 Intestinal adhesions [bands], unspecified as to partial versus complete obstruction (principal); K55.029 Acute infarction of small intestine, extent unspecified; D62 Acute posthemorrhagic anemia; E87.1 Hypo-osmolality and hyponatremia; E83.42 Hypomagnesemia; Z90.711 Acquired absence of uterus with remaining cervical stump
CPT/HCPCS: 36415; 36569; 71045; 74177; 80053; 82962; 83605; 83735; 84100; 84145; 85025; A9270; B4185; B4189; J1100; J1171; J1642; J1644; J1885; J2060; J2250; J2270; J2405; J2543; J2704; J2765; J3010; J3410; J3475; J3480; J7121; Q9967